=== PATIENT | female | born 1960 | race Caucasian/White ===

== ENCOUNTER 2020-11-05 11:37 | Outpatient (REF) | payer MEDICAID, SELFPAY | END 2020-11-05 11:38 | disposition home or self-care (01) | LOC: HO.HOSX 11:37 | PROVIDERS: PCP Internal Medicine; Visit Provider Orthopaedic Surgery | DX: Z98.890 Other specified postprocedural states (principal) | CPT/HCPCS: 99202 ==

== ENCOUNTER 2020-11-06 07:43 | Outpatient (REF) | payer MEDICAID, SELFPAY | END 2020-11-06 07:44 | disposition home or self-care (01) | LOC: HO.HOSX 07:43 | PROVIDERS: Visit Provider Orthopaedic Surgery | DX: Z13.89 Encounter for screening for other disorder (principal) ==

== ENCOUNTER 2020-11-15 15:36 | Outpatient (REF) | payer MEDICAID, SELFPAY ==
--- NOTE | 2020-11-15 15:39 | MR_ITS ---
EXAMINATION: MR SHOULDER WITHOUT CONTRAST, RIGHT CLINICAL INFORMATION: Right shoulder pain, arm numbness. Prior surgery in 1999 and 2003. COMPARISON: Most recent right shoulder MR arthrography dated 02/21/2016. TECHNIQUE: MRI of the shoulder without contrast was performed on a high-field scanner. FINDINGS: ROTATOR CUFF: Attenuation of the distal supraspinatus, infraspinatus, and subscapularis tendons without a measurable tendon defect. No muscle atrophy or fatty infiltration. BICEPS: Interval proximal long head biceps tenodesis. CORACOACROMIAL ARCH: The undersurface of the acromion is minimally curved with small anterolateral subacromial spurs. The acromioclavicular joint is normal. LABRUM/CAPSULE: No displaced undersurface tear. Blunting of the posterosuperior and posterior labrum, likely representing degenerative tearing. Findings are increased when compared to the prior examination. GLENOHUMERAL JOINT/MARROW: Full-thickness articular cartilage loss at the anterior and inferior glenoid with underlying subchondral cystic change. Adjacent humeral head articular cartilage thinning with areas of full-thickness loss. Prominent marginal osteophytes. Findings have significantly increased when compared to the prior examination. No acute osseous injury. MR/MR shoulder RT wo con IMPRESSION: 1. Attenuation of the distal supraspinous, infraspinatus, and subscapularis tendons without a measurable tendon defect. 2. Interval proximal long head biceps tenodesis. 3. Small anterolateral subacromial spurs. 4. Degenerative tearing of the posterosuperior and posterior labrum, new when compared to the prior examination. No displaced undersurface tear. 5. [id number] glenohumeral osteoarthritis, significantly increased when compared to the prior examination.
== END 2020-11-15 15:37 | disposition home or self-care (01) ==
LOC: HO.MRI 15:36
PROVIDERS: Visit Provider Orthopaedic Surgery
DX: R53.1 Weakness (principal); Z98.890 Other specified postprocedural states
CPT/HCPCS: 73221

== ENCOUNTER 2021-01-24 09:00 | Outpatient (RCR) | payer MEDICAID, SELFPAY ==
--- NOTE | 2020-11-19 11:09 | MHC.PT.EP ---
[facility] [place] Office [place] Office [place] Office [address] [phone] F: [phone] F: [phone] F: [phone] F: [phone] Physical Therapy Plan of Care Date of Evaluation: 11/19/20 Date of Surgery: 03/2016 Diagnosis: History of Repair of Right Rotator Cuff Assessment: Pt is a 60 y.o.f. RHD with chief complaint of (R) shoulder pain that has been worsening over last year. Pt PMH is significant for two prior rotator cuff repairs of (R) shoulder with last in 2015. Pt today presents with reduced and pain A/AAROM, shoulder/periscapualr strength, postural abnormalities, compensatory movements with AROM, general joint hypomobility with crepitis, and (+) impingement special testing. Pt sxs are consistent with arthritic changes to (R) shoulder further compounded by weakness causing pain with overhead and lifting movement. 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 Frequency and Duration: The patient will be seen 2x/week for 6 weeks Short Term Goals: 3 Weeks: 1) Pt will be independent in HEP to maintain gains between sessions 2) Pt pain will improve ROM by 50% during movement to aid in pre planning advisor roles. Prison Goals: 6 Weeks: 1) Pt shoulder/periscapular strength will be >4-/5 to aid in ADLs 2) Pt abduction will be >130 degrees to aid in dressing 3) Pt SPADI will be <50/130 to demonstrate significant improvement in daily function. Treatment Plan: Modalities to reduce pain, spasms and effusion. Manual therapy to restore motion and function. Therapeutic exercise to improve strength and flexibility. Neuromuscular re-education for posture and balance. Therapeutic activities to return to functional activities of daily living. Electronically signed by: Nighat Martínez PT Please sign and return to therapist. Thank you for your referral.
--- NOTE | 2021-01-28 07:50 | MHC.PT.DC ---
[facility] [place] [facility] [place] Office [place] Office [address] [facility] [phone] F: [phone] F: [phone] F: [phone] F: [phone] Physical Therapy Discharge Report Diagnosis: History of Repair of Right Rotator Cuff Date of Surgery: 03/2016 Date of Evaluation: 11/19/20 Date of Discharge: 01/25/21 Treatments to Date: 11 Cancellations to Date: 0 No Shows to Date: 0 Discharge Status: Independent with HEP Discharge Summary: Pt with minimal progress and continues to have limited shoulder AROM, decreased GH accessory mobility, and shrug with overhead. Pt to continue with HEP. Electronically signed by: Nighat Martínez PT Please sign and return to therapist. Thank you for your referral.
== END 2021-01-28 07:51 | disposition home or self-care (01) ==
LOC: HO.PTCHIC 09:00
PROVIDERS: PCP Internal Medicine; Visit Provider Orthopaedic Surgery
DX: Z47.89 Encounter for other orthopedic aftercare (principal)
CPT/HCPCS: 97110; 97112; 97140; 97161

== ENCOUNTER 2021-07-17 15:31 | Outpatient (REF) | payer BC, MEDICAID, SELFPAY ==
--- NOTE | ~2021-07-17 | MM_ITS ---
EXAMINATION: MM SCREENING DIGITAL BREAST TOMOSYNTHESIS, BILATERAL CLINICAL INFORMATION: Screening. Asymptomatic. The lifetime risk of breast cancer based on the Tyrer-Cuzick Model is 6%. COMPARISON: Mammography: 03/09/2019, 03/08/2018, 02/06/2017 TECHNIQUE: Digital breast tomosynthesis is performed in both the craniocaudal and mediolateral oblique views along with computer-aided detection (CAD). Synthesized 2D images are generated from the tomosynthesis. FINDINGS: There are scattered areas of fibroglandular density (ACR BI-RADS breast composition Category b). There are no significant masses, abnormal calcifications, or other abnormalities. Parenchymal pattern is similar to prior studies. No developing density. There is chronic mild bilateral nipple retraction. MM/MM tomosynthesis screening BI IMPRESSION: No significant changes from prior exams. ASSESSMENT: BI-RADS 2: Benign RECOMMENDATION: Routine annual mammography screening. This patient's information was entered into a reminder system with a target due date for their next mammogram.
== END 2021-07-17 15:32 | disposition home or self-care (01) ==
LOC: HO.MAMMO 15:31
PROVIDERS: PCP Internal Medicine; Visit Provider Internal Medicine
DX: Z12.31 Encounter for screening mammogram for malignant neoplasm of breast (principal)
CPT/HCPCS: 77063; 77067

== ENCOUNTER 2021-10-29 15:40 | Outpatient (REF) | payer BC, MEDICAID, SELFPAY ==
--- NOTE | ~2021-10-29 | XR_ITS ---
EXAMINATION: XR KNEE, LEFT CLINICAL INFORMATION: Left knee pain and swelling COMPARISON: None TECHNIQUE: Four views of the left knee. FINDINGS: There is moderate suprapatellar joint effusion. No visible acute fracture, dislocation or loose body seen. The tricompartment joint space is maintained normal. XR/XR knee LT 4V IMPRESSION: Mild to moderate suprapatellar joint effusion. No visible acute fracture or dislocation seen.
== END 2021-10-29 15:41 | disposition home or self-care (01) ==
LOC: HO.HMGCX 15:40
PROVIDERS: PCP Internal Medicine; Visit Provider Internal Medicine
DX: M25.562 Pain in left knee (principal); R60.0 Localized edema
CPT/HCPCS: 73564

== ENCOUNTER 2022-01-27 18:28 | Outpatient (REF) | payer BC, MEDICAID, SELFPAY ==
--- NOTE | ~2022-01-27 | MR_ITS ---
MRI OF THE BRAIN WITHOUT IV CONTRAST INDICATION: Progressive cognitive dysfunction. COMPARISON: None available. TECHNIQUE: Multiplanar multisequence MR imaging of the brain was obtained without IV contrast. FINDINGS: There is no hydrocephalus, extra-axial surface collection, or herniation. There is mild chronic microangiopathy. The major flow voids at the skull base are preserved. There is no acute infarct on diffusion-weighted imaging. There is no intracranial hemorrhage on the gradient recalled echo acquisition. The midline structures are normal. There is 3 mm cerebellar tonsillar ectopia without true Chiari malformation. The cerebellum and brainstem are normal. The craniocervical junction is normal. Osseous marrow signal intensity is homogenous. The visualized soft tissues are unremarkable. There is a small fluid level within the right maxillary sinus which exhibits mild mucosal thickening. MR/MR head/brain wo con IMPRESSION: - No acute intracranial findings. - Mild chronic microangiopathy. - There is a small fluid level within the right maxillary sinus which exhibits mild mucosal thickening.
== END 2022-01-27 18:29 | disposition home or self-care (01) ==
LOC: HO.MRI 18:28
PROVIDERS: Visit Provider Internal Medicine
DX: R41.81 Age-related cognitive decline (principal); Q04.8 Other specified congenital malformations of brain
CPT/HCPCS: 70551

== ENCOUNTER 2022-06-11 14:00 | Outpatient (REF) | payer BC, MEDICAID, SELFPAY ==
--- NOTE | ~2022-06-11 | MM_ITS ---
EXAMINATION: BONE DENSITOMETRY CLINICAL INDICATION: Menopause. COMPARISON: Baseline BD dated 04/22/2019. TECHNIQUE: Using a [employer] DXA System (software version: 13.1) manufactured by [employer], dual-energy x-ray absorptiometry was performed of the lumbar spine and left hip. The images are of good technical quality. Summary results are attached. FINDINGS: AP SPINE L1-L2 (excluding L3 and L4): The data of L1-L4 has been changed to exclude the L3 and L4 vertebral bodies, because degenerative sclerosis and metallic artifact from lumbar fusion at these levels may cause overestimation of lumbar spine density. Current: BMD 1.002 g/cm2, Z-score 0.1, T-score -1.4, osteopenia, 5.8% increase from baseline (<5% change is not significant). Baseline: BMD 0.947 g/cm2. LEFT FEMUR, NECK: Current: BMD 0.724 g/cm2, Z-score -0.9, T-score -2.3, osteopenia. Baseline: BMD 0.770 g/cm2. LEFT FEMUR, TOTAL: Current: BMD 0.788 g/cm2, Z-score -0.6, T-score -1.7, osteopenia, 6.4% decrease from baseline (<5% change is not significant). Baseline: BMD 0.842 g/cm2. IDENTIFIED RISK FACTORS: Menopause. HISTORY OF FRACTURE: None listed. MEDICATIONS: Calcium. MM/XR DEXA axial skeleton IMPRESSION: 1. DIAGNOSIS: Osteopenia based on the lowest T-score value of -2.3 in the femoral neck applying World Health Organization criteria. 2. 10-YEAR FRACTURE RISK PREDICTION, FRAX: Major osteoporotic fracture (clinical spine, forearm, hip or shoulder) 11.1%. Hip fracture 1.8%. 3. Treatment Recommendations: NOF guidelines recommend consideration for treatment in postmenopausal women and men age 50 and older presenting with the following: -A hip or vertebral (clinical or morphometric) fracture. -T-score less than or equal to -2.5 at the femoral neck or spine after appropriate evaluation to exclude secondary causes. -Low bone mass at the hip or spine and a 10-year fracture probability by FRAX of greater than or equal to 3% for hip fracture or greater than or equal to 20% for major osteoporotic fracture based on the [place] adapted WHO algorithm. 4. Other Recommendations: All treatment decisions require clinical judgment and consideration of individual patient factors, including patient preferences, comorbidities, previous drug use, risk factors not captured in the FRAX model (e.g. frailty, falls, vitamin D deficiency, increased bone turnover, interval significant decline in bone density) and possible under or overestimation of fracture risk by FRAX. Additional medical evaluation for secondary cause of low bone mineral density may be appropriate. FUTURE SCAN RECOMMENDATION: People with diagnosed cases of osteoporosis or at high risk for fracture should have regular bone mineral density tests. For patients eligible for Medicare, routine testing is allowed once every 2 years. The testing frequency can be increased to one year for patients who have rapidly progressing disease, those who are receiving or discontinuing medical therapy to restore bone mass, or have additional risk factors.
== END 2022-06-11 14:01 | disposition home or self-care (01) ==
LOC: HO.MAMMO 14:00
PROVIDERS: PCP Internal Medicine; Visit Provider Nurse Practitioner Women's Health
DX: Z13.820 Encounter for screening for osteoporosis (principal); Z78.0 Asymptomatic menopausal state
CPT/HCPCS: 77080

== ENCOUNTER 2022-07-21 15:48 | Outpatient (REF) | payer BC, MEDICAID, SELFPAY ==
--- NOTE | ~2022-07-21 | MM_ITS ---
EXAMINATION: MM SCREENING DIGITAL BREAST TOMOSYNTHESIS, BILATERAL CLINICAL INFORMATION: Screening. Asymptomatic. The lifetime risk of breast cancer based on the Tyrer-Cuzick Model is 7%. COMPARISON: Mammography: 07/17/2021, 03/09/2019, 03/08/2018 TECHNIQUE: Digital breast tomosynthesis is performed in both the craniocaudal and mediolateral oblique views along with computer-aided detection (CAD). Synthesized 2D images are generated from the tomosynthesis. Additional left MLO view is provided. FINDINGS: There are scattered areas of fibroglandular density (ACR BI-RADS breast composition Category b). There are no significant masses, abnormal calcifications, or other abnormalities. Parenchymal pattern is similar to prior studies. There is a stable oval nodule posterior upper outer right breast similar to prior studies, possibly intraparenchymal node. The axilla and skin contours are unremarkable. No significant changes. MM/MM tomosynthesis screening BI IMPRESSION: No mammographic evidence of malignancy. ASSESSMENT: BI-RADS 2: Benign RECOMMENDATION: Routine annual mammography screening. This patient's information was entered into a reminder system with a target due date for their next mammogram.
== END 2022-07-21 15:49 | disposition home or self-care (01) ==
LOC: HO.MAMMO 15:48
PROVIDERS: PCP Internal Medicine; Visit Provider Internal Medicine
DX: Z12.31 Encounter for screening mammogram for malignant neoplasm of breast (principal)
CPT/HCPCS: 77063; 77067

== ENCOUNTER 2022-09-10 12:50 | Outpatient (REF) | payer BC, SELFPAY ==
--- NOTE | ~2022-09-10 | XR_ITS ---
EXAMINATION: XR CHEST CLINICAL INFORMATION: Left lower chest pain. Rule out pneumonia COMPARISON: None TECHNIQUE: 2 views of the chest were obtained. FINDINGS: No significant abnormality is noted involving the heart, lungs, mediastinum, bony thorax or soft tissues. XR/XR chest 2V IMPRESSION: Unremarkable chest examination.
== END 2022-09-10 12:51 | disposition home or self-care (01) ==
LOC: HO.HMGCX 12:50
PROVIDERS: PCP Internal Medicine; Visit Provider Internal Medicine
DX: R07.9 Chest pain, unspecified (principal)
CPT/HCPCS: 71046

== ENCOUNTER → 2022-09-18 15:51 | Outpatient (BNVA) | payer BC, SELFPAY | PROVIDERS: PCP Internal Medicine; Visit Provider Orthopaedic Surgery | DX: M19.011 Primary osteoarthritis, right shoulder (principal) | CPT/HCPCS: 20610; J1100 ==

== ENCOUNTER 2022-11-13 10:17 | Outpatient (REF) | payer BC, SELFPAY ==
--- NOTE | ~2022-11-13 | XR_ITS ---
EXAMINATION: XR SHOULDER, RIGHT CLINICAL INFORMATION: Right shoulder pain. COMPARISON: 01/31/2016 and MRI of 11/15/2020. TECHNIQUE: Three views of the right shoulder. FINDINGS: Patient status post previous right shoulder surgery with 2 tacks seen within the femoral head. There is significant spurring about the glenohumeral joint with narrowing of the joint space. No acute fracture or dislocation is evident. The acromioclavicular joint appears unremarkable. No widening of the coracoclavicular space is seen. XR/XR shoulder RT min 2V IMPRESSION: Severe degenerative change of the right glenohumeral joint.
== END 2022-11-13 10:18 | disposition home or self-care (01) ==
LOC: HO.HOSX 10:17
PROVIDERS: Visit Provider Orthopaedic Surgery
DX: M19.011 Primary osteoarthritis, right shoulder (principal); Z98.890 Other specified postprocedural states
CPT/HCPCS: 73030

== ENCOUNTER 2022-12-04 13:14 | Outpatient (REF) | payer BC, SELFPAY | END 2022-12-04 13:15 | disposition home or self-care (01) | LOC: HO.HOSX 13:14 | PROVIDERS: PCP Internal Medicine; Visit Provider Orthopaedic Surgery | DX: Z13.89 Encounter for screening for other disorder (principal) ==

== ENCOUNTER 2023-01-08 19:09 | Outpatient (REF) | payer BC, SELFPAY ==
--- NOTE | ~2023-01-08 | MR_ITS ---
EXAMINATION: MR SHOULDER WITHOUT CONTRAST, RIGHT CLINICAL INFORMATION: Primary osteoarthritis. Patient reports rotator cuff surgery 5 years prior. COMPARISON: X-ray the right shoulder October 2022 TECHNIQUE: MRI of the shoulder without contrast was performed on a high-field scanner. FINDINGS: ROTATOR CUFF: There is mild heterogeneity of the supraspinatus and infraspinatus tendons compatible with tendinosis and perhaps small areas of partial tearing but without any measurable defect. Muscle is normal without atrophy of fatty infiltration. Teres minor normal. Subscapularis: Minimal heterogeneity of the upper most portion of the musculotendinous junction similar to prior compatible with tendinosis and/or minimal partial tearing but no measurable defect or tendon retraction. Muscle normal. BICEPS: There is metallic artifact partially obscuring the lesser tuberosity and surrounding soft tissues. Suspect biceps tenodesis. Tendon distal to the bicipital groove visualized and unchanged. CORACOACROMIAL ARCH: The undersurface of the acromion is curved with no subacromial spur. The acromioclavicular joint is normal. BURSA: Normal. LABRUM/CAPSULE: Persistent heterogeneity and blunting of the superior and posterior labrum likely reflecting degenerative change and/or degenerative tearing. GLENOHUMERAL JOINT/MARROW: There is a persistent large osteophyte along the inferior aspect of the humeral head unchanged. There is diffuse nonuniform primarily high-grade cartilage loss noted throughout the joint with associated subchondral cystic change. There is some reactive edema most prominent on the glenoid side of the joint. There is a joint effusion and synovitis. Possible 5 mm loose body in the axillary recess not clearly seen on the prior exam. MR/MR shoulder RT wo con IMPRESSION: 1. Severe osteoarthritis of the glenohumeral joint with joint effusion and synovitis. Findings similar to prior. Possible loose body in the axillary recess. 2. Mild abnormality of the supraspinatus and infraspinatus tendons compatible with tendinosis and perhaps small areas of partial tearing but no measurable defect or tendon retraction. No change. 3. Minimal abnormality of the upper most portion of the subscapularis compatible with tendinosis and perhaps minimal partial tearing but no measurable defect. No change. 4. Biceps tenodesis. 5. Degenerative change and/or degenerative tearing of the superior and posterior labrum. No change.
== END 2023-01-08 19:10 | disposition home or self-care (01) ==
LOC: HO.MRI 19:09
PROVIDERS: PCP Internal Medicine; Visit Provider Orthopaedic Surgery
DX: M19.011 Primary osteoarthritis, right shoulder (principal); Z98.890 Other specified postprocedural states
CPT/HCPCS: 73221

== ENCOUNTER → 2023-01-19 14:05 | Outpatient (BNVA) | payer BC, SELFPAY | PROVIDERS: PCP Internal Medicine; Visit Provider Orthopaedic Surgery | DX: Z13.89 Encounter for screening for other disorder (principal) ==

== ENCOUNTER 2023-03-17 07:30 | Outpatient (REF) | payer BC, SELFPAY ==
--- NOTE | ~2023-03-17 | CT_ITS ---
EXAMINATION: CT SHOULDER WITHOUT CONTRAST, RIGHT CLINICAL INFORMATION: Primary osteoarthritis. COMPARISON: None available. TECHNIQUE: Axial imaging. Sagittal and coronal reconstructions. This CT examination was performed using dose optimization techniques as appropriate, variously including the following: *Automated exposure control *Adjustment of mA and/or kV according to patient size (this includes techniques or standardized protocols for targeted exams where dose is matched to indication/reason for exam; i.e. extremities or head) *Use of iterative reconstruction technique DLP: 211 mGy-cm FINDINGS: Severe glenohumeral joint arthritis. This is characterized by marked joint space loss, large osteophytes, subchondral sclerosis and cysts. There are metallic bone anchors in the anterior aspect of the proximal humerus. No large glenohumeral joint effusion is seen. Mild acromioclavicular arthritis. Intact right clavicle. Glenoid version: Estimated 5 degrees retroversion. Estimated depth of the glenoid vault: 1.9 cm. Subcentimeter right axillary and mediastinal lymph nodes. No suspicious lung findings. CT/CT shoulder RT wo IV con IMPRESSION: Severe glenohumeral joint arthritis. Mild acromioclavicular arthritis.
== END 2023-03-17 07:31 | disposition home or self-care (01) ==
LOC: HO.CT 07:30
PROVIDERS: Visit Provider Orthopaedic Surgery
DX: M19.011 Primary osteoarthritis, right shoulder (principal)
CPT/HCPCS: 73200

== ENCOUNTER → 2023-03-26 14:25 | Outpatient (BNVA) | payer BC, SELFPAY | PROVIDERS: PCP Internal Medicine; Visit Provider Physician Assistant ==

== ENCOUNTER 2023-03-31 09:59 | Inpatient (IN) | payer BC, SELFPAY ==
[2023-03-23 12:11] VITALS: BP 127/86; PULSE 57; RESP 16; O2SAT 97; BMI 27.0
--- NOTE | 2023-03-23 12:36 | P.CONAN_ITS ---
Documented by User: Belem Espinal NP 03/23/23 12:45 HPI - Anesthesia Eval Consult details Narrative: 62yo F for Right Shoulder Total Arthroplasty Medically optimized per PCP Chronic opioids PMFSH Active Problems Active Problems: All Active Problems (Updated 03/23/23 @ 12:08 by Maia Sousa, IZA) Osteoarthritis of right shoulder (Acute) History of repair of right rotator cuff (Acute ~03/2016) Past Medical History Medical History Elevated cholesterol History of COVID-19 History of hepatitis C HTN (hypertension) Low back pain Memory changes Right shoulder pain Family History Family History (Updated 07/18/20 @ 10:54 by Kina Shah Alvaro) Father No problems noted. Mother No problems noted. 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) Do you presently have visiting nurse or other home services: No Alcohol intake: never Patient Tobacco Use Status: Former Tobacco user Quit Date: Tobacco use type: Cigarette Current occupational status: employed Current occupation: right handed Narrative Narrative: No recent illness No CP/SOB with >4 mets Meds Allergies Allergy/AdvReac Type Severity Reaction Status Date / Time No Known Allergies Allergy Verified 03/31/23 10:14 [No Known Allergies*] Home Medications Medication Instructions Recorded Confirmed Last Taken Type tramadol 50 mg tablet 50 mg PO TID PRN Pain 11/05/20 03/23/23 Unknown History oxycodone 10 mg tablet 10 mg PO QID PRN Pain 09/18/22 03/23/23 Unknown History metoprolol succinate 25 mg 25 mg PO DAILY 01/19/23 03/23/23 03/30/23 History tablet,extended release 24 hr atorvastatin 10 mg tablet 10 mg PO DAILY 03/23/23 03/23/23 03/30/23 History donepezil 10 mg tablet 10 mg PO DAILY 03/23/23 03/23/23 03/30/23 History Exam Exam Date and Time: March 23, 2023 1236 Height,Weight and Vital Signs: Height 5 ft 1 in Weight 64.864 kg Last Vital Signs Pulse 57 03/23/23 12:11 Resp 16 03/23/23 12:11 BP 127/86 03/23/23 12:11 Pulse Ox 97 03/23/23 12:11 O2 Del Method Room Air 03/23/23 12:11 Pertinent Lab Results Pertinent Lab Results: CBC and BMP 02/2023 from outside facility WNL Narrative Narrative: EKG 02/2023 NSR @ 60 Airway Mallampati Class: III TM Dist: >3cm Neck ROM: Full Loose/Missing/Broken Teeth: No (Left lower implant) Heart: RRR Lungs: CTAB (bases dim) Assessment and Plan Assessment Anesthesia Assessment: Anesthesia Plan Discussed and PAT Visit Final Anesthetic Review Family History of Problems with Anesthesia: No History of Problems with Anesthesia: No Documented by User: Radha Elizabeth MD 03/31/23 11:33 HPI - Anesthesia Eval Consult details Narrative: 62yo F for Right Shoulder Total Arthroplasty Medically optimized per PCP Chronic opioids ladt took oxycodone one week ago. takes tramadol one to two tabs per day. took metoprolol last back surgery 5 years ago, overall lumbarsurgeryx2 PMFSH Active Problems Active Problems: All Active Problems (Updated 03/23/23 @ 12:08 by Maia Sousa, IZA) Osteoarthritis of right shoulder (Acute) History of repair of right rotator cuff (Acute ~03/2016) back surgeries x2 Past Medical History Medical History Elevated cholesterol History of COVID-19 History of hepatitis C HTN (hypertension) Low back pain Memory changes Right shoulder pain Family History Family History (Updated 07/18/20 @ 10:54 by Kina Shah Alvaro) Father No problems noted. Mother No problems noted. 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 (son with special needs) Do you presently have visiting nurse or other home services: No Alcohol intake: never Patient Tobacco Use Status: Former Tobacco user Quit Date: Tobacco use type: Cigarette Current occupational status: employed Current occupation: right handed Meds Allergies Allergy/AdvReac Type Severity Reaction Status Date / Time No Known Allergies Allergy Verified 03/31/23 10:14 [No Known Allergies*] Home Medications Medication Instructions Recorded Confirmed Last Taken Type tramadol 50 mg tablet 50 mg PO TID PRN Pain 11/05/20 03/23/23 Unknown History oxycodone 10 mg tablet 10 mg PO QID PRN Pain 09/18/22 03/23/23 Unknown History metoprolol succinate 25 mg 25 mg PO DAILY 01/19/23 03/23/23 03/30/23 History tablet,extended release 24 hr atorvastatin 10 mg tablet 10 mg PO DAILY 03/23/23 03/23/23 03/30/23 History donepezil 10 mg tablet 10 mg PO DAILY 03/23/23 03/23/23 03/30/23 History Exam Airway Mallampati Class: II Assessment and Plan Final Anesthetic Review ASA Class: II Final Preanesthetic Review: No Changes in Pt Med Stat, Meds/Allgs Chart Reviewed, Consent Obtained/Reviewed and Anes Risks/Benef Reviewed Patient Risk: Intermediate Procedure Risk: Intermediate Anesthetic Plan Anesthetic Plan: GA and Regional Block Disposition: Standard PACU
[2023-03-23 13:01] LABS: MANUAL DIFF FLAG NO
[2023-03-23 13:07] LABS: Basophils Absolute Auto 0.1 X10*3/uL (0.0-0.2); Basophils Percent Auto 0.8 % (0-2); Eosinophils Absolute Auto 0.2 X10*3/uL (0.0-0.4); Eosinophils Percent Auto 2.5 % (0-4); Hematocrit 40.8 % (37.0-47.0); Hemoglobin 13.5 g/dl (12.0-16.0); Imm Gran Abs Auto 0.01 X10*3/uL (0.00-0.03); Imm Gran Pct Auto 0.1 % (0.0-0.4); Lymphocytes Absolute Auto 2.8 X10*3/uL (1.2-4.9); Lymphocytes Percent Auto 39.5 % (20-40); Mean Corpuscular HGB Conc 33.1 g/dl (31.0-35.0); Mean Corpuscular Hemoglobin 31.8 pg (27.0-33.0); Mean Corpuscular Volume 96.2 fL (80.0-98.0); Mean Platelet Volume 10.6 fL (9.4-12.3); Monocytes Absolute Auto 0.6 X10*3/uL (0.1-1.2); Neutrophils Absolute Auto 3.5 x10*3/uL (2.0-8.3); Neutrophils Percent Auto 49.1 % (45-73); Platelet Count 248 X10*3/uL (160-400); Red Blood Count 4.24 X10*6/uL (4.20-5.50); Red Cell Distribution Width 12.7 % (11.0-16.0); White Blood Count 7.1 X10*3/uL (4.8-10.8)
[2023-03-23 13:28] LABS: Anion Gap 12 (12-20); Blood Urea Nitrogen 28 mg/dL (9-16); Calcium 9.8 mg/dL (8.4-10.2); Carbon Dioxide 28 mmol/L (22-29); Chloride 104 mmol/L (96-108); Creatinine Clr Calc Pharmacy 57.9; Estimated Glomerular Filt Rate > 60; Glucose Random 79 mg/dL (60-115); Potassium 4.1 mmol/L (3.3-5.1); Sodium 140 mmol/L (135-145)
[2023-03-23 15:07] LABS: MRSA Nasal PCR NEGATIVE (Negative); SA Nasal PCR POSITIVE (Negative)
[2023-03-31] VITALS (7 sets, daily range): BP systolic 99–134; BP diastolic 56–86; PULSE 57–77; RESP 15–20; TEMP 36.1–36.6; O2SAT 92–98; BMI 27.7
--- NOTE | ~2023-03-31 | XR_ITS ---
EXAMINATION: XR SHOULDER, RIGHT CLINICAL INFORMATION: Right shoulder replacement COMPARISON: Previous x-ray October 2022 CT February 2023 and MR December 2022 TECHNIQUE: AP portable view of the right shoulder. FINDINGS: There is a new right shoulder replacement in satisfactory position. No fracture or dislocation postoperative changes to the soft tissues. XR/XR shoulder RT 1V IMPRESSION: Satisfactory appearance of right shoulder replacement.
--- OUTSIDE RECORDS SUMMARY | 2023-03-31 10:04 | XMS_ITS ---
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 Role Phone Gabino Moran Jr Unavailable [phone] PROBLEMS Type Condition ICD9-CM Code WTE36-IS Code Onset Dates Condition Status SNOMED Code Problem Colon cancer screening V76.51 Active 502293704 Problem Hepatitis C 070.70 Active [id number] ALLERGIES No Known Allergies ENCOUNTERS Encounter Location Date Diagnosis [facility] [address] [place] [phone] Nov, [facility] [address] [place] [phone] Oct, [facility] [address] [place], [place] [phone] Jul, [facility] [address] [place] [phone] Apr, Hepatitis C 070.70 and Colon cancer screening V76.51 [facility] [address] [place] [phone] May, [facility] [address] [place], [place] [phone] May, IMMUNIZATIONS No Known Immunizations SOCIAL HISTORY Never Assessed REASON FOR REFERRAL FUNCTIONAL STATUS PLAN OF CARE Activity Details VITAL SIGNS Weight 137 lbs 2012-04-29 Height 61 in 2012-04-29 BMI 25.88 kg/m2 2012-04-29 Heart Rate 76 /min 2012-04-29 Blood pressure systolic 130 mm Hg Blood pressure diastolic 82 mm Hg 2012-04 MEDICATIONS Medication Instructions Dosage Frequency Start Date End Date Duration Status fentaNYL Active Flaxseed Oil Act perla Multi Vitamin/Minera ls Active traMADol HCl Act perla MoviPrep 100 GM as directed before colonoscopy Apr, 1 dose Active Vitamin D Active oxyCODONE HCl Ac tive Calcium Active PROCEDURES No Known procedures RESULTS No Results REASON FOR VISIT Patient presents today for a colon recall, colon recall, Pt no show, Patient presents today for discuss colonoscopy, New insurance?, colorectal cancer screening, hepatitis c Insurance Providers Health Insurance Type Health Plan Insurance Address Health Plan Insurance Phone Health Plan Insurance Name Health Plan Coverage Dates Member ID Patient Relationship to Subscriber Patient Address Patient Phone Patient Name Patient Date of Subscriber ID Subscriber Name Subscriber Date of Group No ANTHEM BC/BS OF [place] [address] CLAIMS UNIT [facility] [phone] ANTHEM BC/BS OF CT self NATHAN TALBOT [id number] [employer] [place] [address] [facility] [id number] [employer] [place] self NATHAN TALBOT [id number]
--- OUTSIDE RECORDS SUMMARY | 2023-03-31 10:04 | XMS_ITS | Continuity of Care Document ---
Author Name Unknown Organization [facility] Address [address] [place] [address]- Care Team Providers Care Golf Starter And Ranger Name Role Phone Bill SANTILLAN, Domingo Negron Primary Care Physician [phone] Encounter [facility] Date(s): 02/21/23 - 02/21/[address] [address]- Encounter Diagnosis Opiate overdose(Final) - 02/21/23 Discharge Disposition: A-D/C Home Attending Physician: Shorty Ni MD Admitting Physician: Shorty Ni MD Referring Physician: Not on Staff, Referring MD Vital Signs Most recent to oldest [Reference Range]: 1 2 Oxygen Saturation [94-100 %] 100 % (02/21/23 12:06 PM) 97 % (02/21/23 8:41 AM) Pulse Rate [55-90 bpm] 65 bpm (02/21/23 12:06 PM) 73 bpm (02/21/23 8:41 AM) Blood Pressure [90-138/55-84 mm Hg] 114/ 64mm Hg (02/21/23 12:06 PM) 133/79mm Hg (02/21/23 8:41 AM) Respiratory Rate [16-30 br/min] 18 br/mi n (02/21/23 12:06 PM) 20 br/min (02/21/23 8:41 AM) Temperature [96.8-100.4 DegF] 98.8 DegF (02/21/23 8:41 AM) Mode of Delivery (Oxygen) Room air (02/21/23 12:06 PM) Room air (02/21/23 8:41 AM) Blood pressure sites Arm, left (02/21/23 12:06 PM) Arm, left (02/21/23 8:41 AM) Temperature Route Oral (02/21/23 8:41 AM) EKG study * Event Display: ECG 12-Lead Authored Date: Please click on pdf link to open report * Event Display: ECG 12-Lead Authored Date: Ventricular Rate: 69 BPM Atrial Rate: 69 BPM P-R Interval: 140 ms QRS Duration: 80 ms Q-T Interval: 388 ms QTC Calculation(Bazett): 415 ms P [place]: -11 degrees R [place]: 13 degrees T [place]: -3 degrees Normal sinus rhythm Normal ECG No previous ECGs available Confirmed by KEYSHA VILLAFUERTE MD ([id number]) on 02/21/2023 9:09:34 AM [place]: KEYSHA VILLAFUERTE MD Patient Care team information Care Team Personnel Name: Domingo Khan MD Position: Reference Physician Member Role: PCP Address: Address: [address] [place] [address]- Name: Jade Vergara Position: [facility] ED RN W/OE and Tasks Member Role: Patient Care Provider Name: Indira Rodríguez Position: [facility] ED RN W/OE and Tasks Member Role: Patient Care Provider Name: Zaid Nelson MD Position: [facility] Resident Member Role: ED Resident Address: Address: [address] [place] [address]- [place] Name: Shorty Ni MD Position: [facility] ED Medicine MD Member Role: Admitting Physician Address: Address: [address] [place] [address]- Name: Jenny Sultana Position: [facility] ED TA [facility] Member Role: Nail Welter Care Team Related Persons Name: TALBOT TIFFANY Address: home [address] [place] [address]
--- NOTE | 2023-03-31 10:10 | PHA.MEDREC ---
Pharmacy Consult ? Medication Reconciliation Pharmacy has completed the medication reconciliation. Reviewed med rec done by nursing
[2023-03-31] MEDS: Lactated Ringers 1,000 ML 100 ML IVCONT ×2 (10:59→15:44)
--- NOTE | 2023-03-31 14:19 | MHC.SHP ---
Pre-Procedural Eval Section A Date of Service: 03/31/23 The patient is an INPATIENT: No Changes since office visit: No Cold of Flu in the past 2 weeks, No New Medical Problems, No Changes in Medication and No Patient answered all questions The History & Physical has been completed within 30 days and I have reviewed it.: Yes Section B Chief Complaint: RT TSA Allergies: Allergies Allergy/AdvReac Type Severity Reaction Status Date / Time No Known Allergies Allergy Verified 03/31/23 10:14 [No Known Allergies*] Plan I have reviewed the history and physical and performed a pertinent physical examination on my patient. No changes have occurred unless specified. Time Spent With Patient Time: Total time managing care of this patient today ____ minutes.
--- NOTE | 2023-03-31 14:20 | P.BOP_ITS ---
Brief Operative Note Date of Service: 03/31/23 Pre-op diagnosis: Right shoulder OA Post-op diagnosis: same Procedure: Right TSA Implants: Tournier Size 1 Nucleus 44x18 Simpliciti head Small 40 Cortiloc glenoid, cemented Surgeon: Tan Benavidez MD Anesthesia: GETA and regional Was an Exterior Door Installer used for this Procedure?: Yes Exterior Door Installer: Milana Dee Estimated blood loss (mL): 200 IV fluids (mL): 1,000 Pathology: other Condition: stable Disposition: PACU
--- NOTE | 2023-03-31 16:03 | PM.IMCN ---
History of Present Illness Data of Consult Service Date: 03/31/23 Primary Care Provider: Unknown Physician HPI Reason for consult: hld 62F PMH htn, hld, alzheimers dementia(mild), presneted for elective right total shoulder arthoplasty for osteoarthritis. medical consult for comanagement of comorbidities. postoperatively, patient has no active complaints. Review of Systems Review of Systems: Yes all other systems are reviewed and are negative [facility] Medical History Elevated cholesterol History of COVID-19 History of hepatitis C HTN (hypertension) Low back pain Memory changes Right shoulder pain Family History Father No problems noted. Mother No problems noted. Surgical History History of back surgery History of carpal tunnel release History of repair of right rotator cuff (~03/2016) Hx of colonoscopy Social History Are you a primary pediatric critical care nurse to a significant other at home: Yes (son with special needs) Do you presently have visiting nurse or other home services: No Alcohol intake: never Patient Tobacco Use Status: Former Tobacco user Quit Date: Tobacco use type: Cigarette Current occupational status: employed Current occupation: right handed Meds Allergies Allergy/AdvReac Type Severity Reaction Status Date / Time No Known Allergies Allergy Verified 03/31/23 10:14 [No Known Allergies*] Active Medications: Current Medications Acetaminophen (Acetaminophen 325 Mg Tablet) 650 mg PO Q6H PRN PRN Reason: Pain, Mild (Pain Scale 1-3) Atorvastatin Calcium (Atorvastatin Calcium 10 Mg Tablet) 10 mg PO DAILY SWAPNA Celecoxib (Celecoxib 200 Mg Capsule) 200 mg PO BID SWAPNA Docusate Sodium (Docusate Sodium 100 Mg Capsule) 100 mg PO BID SWAPNA Donepezil HCl (Donepezil Hcl 10 Mg Tablet) 10 mg PO DAILY SWAPNA Hydromorphone HCl (Hydromorphone Hcl 0.5 Mg/0.5 Ml Syringe) 0.25 mg IVPUSH Q4H PRN; Protocol PRN Reason: Pain, Severe (Pain Scale 7-10) Lactated Ringer's (Lr) 1,000 mls @ 100 mls/hr IVCONT .Q10H [facility] Stop: 04/01/23 14:36 Last Admin: 03/31/23 15:44 Dose: 100 mls/hr Metoprolol Succinate (Metoprolol Succinate Er 25 Mg Tab.Er.24h) 25 mg PO DAILY [facility]; Protocol Ondansetron HCl (Ondansetron Hcl 4 Mg/2 Ml Vial) 4 mg IVPUSH Q8H PRN PRN Reason: Nausea and Vomiting Oxycodone HCl (Oxycodone Hcl Immed Release 5 Mg Tablet) 5 mg PO Q4H PRN PRN Reason: Pain, Moderate(Pain Scale 4-6) Oxycodone HCl (Oxycodone Hcl Er 10 Mg Tab.Er.12h) 10 mg PO BID [facility] Sodium Chloride (0.9 % Sodium Chloride Flush 3 Ml Syringe) 3 ml IVFLUSH QSHIFT [facility] Last Admin: 03/31/23 15:53 Dose: Not Given Home Medications Medication Instructions Recorded Confirmed Last Taken Type tramadol 50 mg tablet 50 mg PO TID PRN Pain 11/05/20 03/23/23 Unknown History oxycodone 10 mg tablet 10 mg PO QID PRN Pain 09/18/22 03/23/23 Unknown History metoprolol succinate 25 mg 25 mg PO DAILY 01/19/23 03/23/23 03/30/23 History tablet,extended release 24 hr atorvastatin 10 mg tablet 10 mg PO DAILY 03/23/23 03/23/23 03/30/23 History donepezil 10 mg tablet 10 mg PO DAILY 03/23/23 03/23/23 03/30/23 History Physical Exam Vital Signs and Narrative: Vital Signs: Last Vital Signs Temp 97.1 F 03/31/23 14:53 Pulse 63 03/31/23 14:53 Resp 20 03/31/23 14:53 BP 130/78 03/31/23 14:53 Pulse Ox 93 03/31/23 14:53 O2 Del Method Room Air 03/31/23 14:53 BMI result Body Mass Index 27.7 General: AO X 3, no acute distress Resp: CTA bilateral, no accessory muscles used CVS: S1,S2,RRR GI: soft, non tender, non distended Neuro: motor grossly intact, alert Psych: appropriate affect, appropriate insight Results Labs 03/23/23 12:59 03/23/23 12:59 Assessment and Plan (1) Osteoarthritis of right shoulder: Status: Acute Plan 62F PMH htn, hld, alzheimers dementia(mild), presneted for elective right total shoulder arthoplasty for osteoarthritis. medical consult for comanagement of comorbidities hld statin alzheimers aricept htn toprol will sign off for now, please recall if needed Time Spent With Patient Time: Total time managing care of this patient today ____ minutes.
[2023-03-31] MEDS: ceFAZolin Sodium/Dextrose,Iso 2 GM/50 ML PIGGYBACK IV (17:56)
[2023-03-31] MEDS: HYDROmorphone HCl 0.5 MG/0.5 ML SYRINGE 0.25 MG IVPUSH (18:08)
[2023-03-31] MEDS: oxyCODONE HCl Immed Release 5 MG TABLET PO (19:54)
[2023-03-31] MEDS: oxyCODONE HCl ER 10 MG TAB.ER.12H PO (19:54)
[2023-03-31] MEDS: Docusate Sodium 100 MG CAPSULE PO (19:55)
[2023-03-31] MEDS: Celecoxib 200 MG CAPSULE PO (19:55)
[2023-04-01] MEDS: Lactated Ringers 1,000 ML 100 ML IVCONT ×2 (01:35→13:47)
[2023-04-01 03:23] VITALS: BP 100/58; PULSE 67; RESP 18; TEMP 36.4; O2SAT 98
[2023-04-01 05:51] LABS: MANUAL DIFF FLAG NO
[2023-04-01] MEDS: oxyCODONE HCl Immed Release 5 MG TABLET PO ×5 (06:12→22:55)
[2023-04-01 06:18] LABS: Anion Gap 13 (12-20); Blood Urea Nitrogen 21 mg/dL (9-16); Calcium 9.2 mg/dL (8.4-10.2); Carbon Dioxide 26 mmol/L (22-29); Chloride 109 mmol/L (96-108); Creatinine Clr Calc Pharmacy 62.9; Estimated Glomerular Filt Rate > 60; Glucose Fasting 171 mg/dL (60-99); Potassium 4.6 mmol/L (3.3-5.1); Sodium 143 mmol/L (135-145)
[2023-04-01 06:33] LABS: Basophils Percent Auto 0.1 % (0-2); Hematocrit 34.1 % (37.0-47.0); Hemoglobin 11.3 g/dl (12.0-16.0); Imm Gran Abs Auto 0.06 X10*3/uL (0.00-0.03); Imm Gran Pct Auto 0.4 % (0.0-0.4); Lymphocytes Absolute Auto 1.8 X10*3/uL (1.2-4.9); Lymphocytes Percent Auto 12.9 % (20-40); Mean Corpuscular HGB Conc 33.1 g/dl (31.0-35.0); Mean Corpuscular Hemoglobin 32.5 pg (27.0-33.0); Mean Platelet Volume 11.3 fL (9.4-12.3); Monocytes Absolute Auto 1.3 X10*3/uL (0.1-1.2); Monocytes Percent Auto 9.6 % (2-11); Neutrophils Absolute Auto 10.7 x10*3/uL (2.0-8.3); Platelet Count 218 X10*3/uL (160-400); Red Blood Count 3.48 X10*6/uL (4.20-5.50); Red Cell Distribution Width 13.1 % (11.0-16.0); White Blood Count 13.8 X10*3/uL (4.8-10.8)
[2023-04-01 07:11] VITALS: BP 121/61; PULSE 61; RESP 16; TEMP 36.2; O2SAT 100
--- NOTE | 2023-04-01 07:15 | HO.POSTANES ---
Post Anesthesia Evaluation Post Anesthesia Evaluation Date of Service: 04/01/23 Vital Signs: Vital Signs Temp Pulse Resp BP Pulse Ox O2 Del Method 04/01/23 03:23 97.5 F 67 18 100/58 L 98 Room Air 03/31/23 23:32 98 F 68 18 99/56 L 96 Room Air 03/31/23 19:39 97.9 F 77 16 122/65 94 Room Air Anesthesia: Nerve Block and General Mental Status: Awake Pain Control: Satisfactory Nausea/Vomiting: None Hydration: Adequate Anesthesia-Related Issues: No Anes. Related Issues
[2023-04-01] MEDS: Docusate Sodium 100 MG CAPSULE PO ×2 (07:18→20:31)
[2023-04-01] MEDS: Donepezil HCl 10 MG TABLET PO (07:18)
[2023-04-01] MEDS: Metoprolol Succinate ER 25 MG TAB.ER.24H PO (07:18)
[2023-04-01] MEDS: Atorvastatin Calcium 10 MG TABLET PO (07:18)
[2023-04-01] MEDS: oxyCODONE HCl ER 10 MG TAB.ER.12H PO ×2 (07:18→20:31)
[2023-04-01] MEDS: Celecoxib 200 MG CAPSULE PO ×2 (07:18→20:31)
--- NOTE | 2023-04-01 07:18 | PM.PNORT ---
Subjective Subjective Date of Service: 04/01/23 Interval history: POD1 s/p RTSA. Patient resting comfortably. No overnight events. Pain managed. No additional complaints. Physical Exam Vital Signs: Vital Signs: Last Vital Signs Temp 97.1 F 04/01/23 07:11 Pulse 61 04/01/23 07:11 Resp 16 04/01/23 07:11 BP 121/61 04/01/23 07:11 Pulse Ox 100 04/01/23 07:11 O2 Del Method Room Air 04/01/23 07:11 BMI result Body Mass Index 27.7 Const: General: cooperative, healthy appearing and no acute distress Resp: Effort & Inspection: normal respiratory effort and able to speak in complete sentences Cardio: Rate: regular rate Peripheral pulses: Peripheral pulses 2+ throughout GI: Palpation (GI): Soft to palpation Skin: Lesions: no lesions Rashes: no rashes Extrem: Other: Right shoulder Aquacel is c/d/i. NVI. Procedures Date of Service Date of Service: 04/01/23 Progress Note: A&P Assessment and plan (1) Status post total replacement of right shoulder: Status: Acute Plan Continue pain mgmnt begin PT for right TSA - Protect the subscap repair Dispo planning-Pending PT eval, pain mgmnt Time Spent With Patient Time: Total time managing care of this patient today ____ minutes. Quality Stroke Does the patient have a stroke diagnosis?: No VTE Prior VTE?: No VTE Risk Level:: Medical - moderate - high VTE Device Contraindication: N/A - Device Ordered VTE Drug Contraindication: N/A - Med Ordered
[2023-04-01] MEDS: HYDROmorphone HCl 0.5 MG/0.5 ML SYRINGE 0.25 MG IVPUSH ×4 (08:01→20:31)
[2023-04-01] MEDS: Acetaminophen 325 MG TABLET 650 MG PO ×2 (10:06→18:26)
--- NOTE | 2023-04-01 10:58 | MHC.CM.PN ---
pt lives with had no previous servceis pt has a ride home referral to [facility] for servceis
--- NOTE | 2023-04-01 11:03 | MHC.CM.PN ---
pt lives w/ has own ride home referral to [facility] for home pt
[2023-04-01 12:00] VITALS: BP 141/65; PULSE 69; RESP 16; TEMP 36.3; O2SAT 99
[2023-04-01 15:45] VITALS: BP 135/71; PULSE 60; RESP 18; TEMP 35.5; O2SAT 100
[2023-04-01 19:42] VITALS: BP 124/60; PULSE 67; RESP 18; TEMP 36.4; O2SAT 96
[2023-04-01] MEDS: 0.9 % Sodium Chloride Flush 3 ML SYRINGE IVFLUSH (20:32)
[2023-04-02] MEDS: HYDROmorphone HCl 0.5 MG/0.5 ML SYRINGE 0.25 MG IVPUSH ×2 (03:49→09:46)
[2023-04-02 03:53] VITALS: BP 131/69; PULSE 62; RESP 18; TEMP 36.6; O2SAT 96
[2023-04-02 06:24] LABS: MANUAL DIFF FLAG NO
[2023-04-02 06:39] LABS: Basophils Absolute Auto 0.1 X10*3/uL (0.0-0.2); Basophils Percent Auto 0.6 % (0-2); Eosinophils Absolute Auto 0.1 X10*3/uL (0.0-0.4); Eosinophils Percent Auto 1.8 % (0-4); Hematocrit 33.1 % (37.0-47.0); Hemoglobin 10.7 g/dl (12.0-16.0); Imm Gran Abs Auto 0.03 X10*3/uL (0.00-0.03); Imm Gran Pct Auto 0.4 % (0.0-0.4); Lymphocytes Absolute Auto 2.4 X10*3/uL (1.2-4.9); Lymphocytes Percent Auto 31.5 % (20-40); Mean Corpuscular HGB Conc 32.3 g/dl (31.0-35.0); Mean Corpuscular Hemoglobin 31.7 pg (27.0-33.0); Mean Corpuscular Volume 97.9 fL (80.0-98.0); Mean Platelet Volume 11.2 fL (9.4-12.3); Monocytes Absolute Auto 0.9 X10*3/uL (0.1-1.2); Monocytes Percent Auto 12.1 % (2-11); Neutrophils Absolute Auto 4.1 x10*3/uL (2.0-8.3); Neutrophils Percent Auto 53.6 % (45-73); Platelet Count 191 X10*3/uL (160-400); Red Blood Count 3.38 X10*6/uL (4.20-5.50); Red Cell Distribution Width 13.3 % (11.0-16.0); White Blood Count 7.7 X10*3/uL (4.8-10.8)
[2023-04-02 07:04] LABS: Anion Gap 9 (12-20); Blood Urea Nitrogen 18 mg/dL (9-16); Calcium 8.9 mg/dL (8.4-10.2); Carbon Dioxide 26 mmol/L (22-29); Chloride 110 mmol/L (96-108); Creatinine Clr Calc Pharmacy 62.9; Estimated Glomerular Filt Rate > 60; Glucose Fasting 90 mg/dL (60-99); Potassium 4.2 mmol/L (3.3-5.1); Sodium 141 mmol/L (135-145)
[2023-04-02 07:23] VITALS: BP 136/69; PULSE 66; RESP 18; TEMP 36.8; O2SAT 96
[2023-04-02] MEDS: Docusate Sodium 100 MG CAPSULE PO (07:57)
[2023-04-02] MEDS: Celecoxib 200 MG CAPSULE PO (07:57)
[2023-04-02] MEDS: Donepezil HCl 10 MG TABLET PO (07:57)
[2023-04-02] MEDS: Metoprolol Succinate ER 25 MG TAB.ER.24H PO (07:57)
[2023-04-02] MEDS: 0.9 % Sodium Chloride Flush 3 ML SYRINGE IVFLUSH (07:58)
[2023-04-02] MEDS: oxyCODONE HCl ER 10 MG TAB.ER.12H PO (07:58)
[2023-04-02] MEDS: Atorvastatin Calcium 10 MG TABLET PO (07:58)
--- NOTE | 2023-04-02 10:26 | MHC.CM.PN ---
DP: PT HAS BEEN MEDICALLY CLEARED FOR DC HOME WITH NEW [facility] FOR HOME THERAPY. FAMILY WILL TRANSPORT HOME. [facility] NOTIFIED OF TODAY'S DC.
--- NOTE | 2023-04-02 10:51 | P.F2F_ITS ---
Service Date Service Date: 04/02/23 Encounter Date of encounter: 04/02/23 Reasons for Services Signs and symptoms assessed: right arm pain, weakness. Reason for physical therapy: home safety and mobility, therapeutic exercises, restore joint function, gait/transfer training, ADL training and energy conservation Reason for occupational therapy: home safety and mobility, therapeutic exercises, restore joint function, gait/transfer training, ADL training and energy conservation Homebound: Leaving the home is medically contraindicated at this time without the asist of a device and/or another person due th the listed conditions above and below. Reason homebound: unsteady gait / fall risk, pain with ambulation, poor balance / fall risk and unable to drive Homebound supporting statement: Pt. is considered home bound due to recent surgery. Unable to drive, poor balance, poor gait mechanics. Certification: Based on the above findings, I certify that this patient is confined to the home and needs intermittent retirement care, physical therapy and/or speech therapy, or continues to need occupational therapy. The patient is under my care, and I have initiated the establishment of the plan of care. The patient will be followed by a physician who will periodically review the plan of care. Time Spent With Patient Time: Total time managing care of this patient today ____ minutes.
--- NOTE | 2023-04-04 16:45 | P.OP_ITS ---
Operative Note Operative Note Date of Service: 03/31/23 Narrative: Date of Service: 03/31/23 Pre-op diagnosis: Right shoulder OA Post-op diagnosis: same Procedure: Right TSA Implants: Tournier Size 1 Nucleus 44x18 Simpliciti head Small 40 Cortiloc glenoid, cemented Surgeon: Tan Benavidez MD Anesthesia: GETA and regional Was an Sales Expert Home Theater used for this Procedure?: Yes Sales Expert Home Theater: Milana Dee Estimated blood loss (mL): 200 IV fluids (mL): 1,000 Pathology: other Condition: stable Disposition: PACU Procedure in detail: Patient was brought to the operating room and placed in the beach chair position on the surgical table. The limb was prepped and draped in standard sterile fashion and a time out was called to identify proper site, proper procedure and IV antibiotics per weight were administered. I began by making a deltopectoral incision from the coracoid to the pectoralis insertion.? Blunt dissection identified the cephalic vein which was retracted laterally.? Blunt dissection was taken down to the 3 sisters which were cauterized.? I then made a full- thickness capsulotomy including the subscapularis. A 1 cm cuff was left for repair.? This was then tagged and the arm was externally rotated and extended and the head was dislocated.? The humeral head was eburnated and there was a very large inferior osteophyte that was removed with an osteotome.? The RTC was intact. An anatomic head cut was made in patient's natural inclination (approximately 132 degree) .? I used size 1 guide and drilled a beefpin through the center of the cut and the lateral umeral cortex. This was overdrilled with the simplicity drill and I then placed my head protector and turned my attention to the glenoid.? Posterior anterior and superior glenoid retractors were placed and the biceps was tenotomized and labral tissue was removed.? Based on the preoperative CT and templating a guide pin was placed in approximately 8 degrees of retroversion and neutral inclination.? Using a Reamer I reamed down to bleeding bone circumferentially and placed the size 40M glenoid drill guide. I drilled my center hole and peg holes and trialed with a 44x18 head. I was satisfied with the translation and so I cemented in place my final glenoid while applying axial compression. Once the cement was dry all excess cement was removed. I then returned to the humerus where I trialed a?44x18 head. I was satisfied with the height and the stability. I irrigated copiously and then impacted in the final implants. I was satisfied with the stability of the implants. I then irrigated and repaired the subscapularis with fiberwire.? I closed in a layered fashion with absorbable suture and vikas and the patient was placed in a sterile dressing and an abduction sling.? She was extubated brought to recovery room stable condition there were no known complications.
--- NOTE | 2023-04-10 16:16 | P.DS_ITS ---
DS: Providers Provider Date of Service: 04/10/23 Date of admission: 03/31/23 09:59 Primary care physician: Domingo Khan MD Consults: 03/31/23 15:24 Consult to Hospitalist Routine Comment: Consulting Provider: Hospitalist Reason For Exam: medical managment DS: Diagnosis Discharge Diagnosis (1) Status post total replacement of right shoulder: Status: Acute DS: Summary Hospital Course Hospital Course: The patient underwent a successful right total shoulder arthroplasty was transferred to PACU and then to the floor to recover. During their stay, their vitals were stable, afebrile at 98.3 . Labs were unremarkable, H/H 10.7/33.1 . POD 1 he was started on ASA for DVT ppx, they also received Physical Therapy services twice a day. Physical therapy should include : Wear sling at all times unless for hygiene and exercises * Pendelums three times a day * Physical Therapy/ Occupation therapy---protect the subscap repair * ---No raising Right arm above 30 degrees, No ER/IR beyond neutrals, no Abduction beyond 30 degrees * ---No heavy lifting * ---Elbow and wrist ROM ok Prior to discharge, his dressing was changed, incision clean dry and intact, new Aquacel dressing applied. The Aquacel dressing should remain intact and dry at all times. Any concerns with the dressing, please contact orthopedic office. No showering. The plan is to be discharged home with [facility] Time Spent with Patient Time attestation: Total time managing care of this patient today ____ minutes. Discharge coordination time: Less than 30 minutes Quality: Safe Use of Opioids Does Pt have an Active Cancer Diagnosis on the Problem List?: No Quality: Stroke Does the patient have a stroke diagnosis?: No Physical Exam Vital Signs: Vital Signs: Last Vital Signs Temp 98.3 F 04/02/23 07:23 Pulse 66 04/02/23 07:23 Resp 18 04/02/23 07:23 BP 136/69 04/02/23 07:23 Pulse Ox 96 04/02/23 07:23 O2 Del Method Room Air 04/02/23 07:23 BMI result Body Mass Index 27.7 DS: Data Data Completed and Pending Completed studies during hospitalization [Text1]: Pending at discharge 03/31/23 14:07 Surgical [PTH] Routine Procedures Introduction of Anesthetic Agent into Peripheral Nerves and Plexi, Percutaneous Approach (03/31/23) Replacement of Right Shoulder Joint with Synthetic Substitute, Open Approach (03/31/23) Discharge Plan Discharge Anticipated Discharge Date/Time: 04/02/23 10:13 Patient Disposition: Home Health Service Discharge Diagnosis: RT TSA Referrals: Vi [facility]ONE[facility] [Outside] - 1 Week (HOME SERVICES FOR OCCUPATIONAL/PHYSICAL THERAPY- A THERAPIST WILL REACH OUT TO YOU TO SET UP FIRST VISIT.) Elsa Hickey PA-C [Physician Division Sales Manager] - 2 Weeks (04/16/23 1:15 [facility] Elsa Hickey PA-C) Discharge Medications: New docusate sodium 100 mg Capsule 100 mg PO BID 14 Days Qty: 28 0RF celecoxib 200 mg Capsule 200 mg PO BID 30 Days Qty: 60 0RF acetaminophen 325 mg Tablet 650 mg PO Q6H PRN (Reason: Pain, Mild (Pain Scale 1-3)) 30 Days Qty: 240 0RF oxycodone 5 mg Tablet 5 mg PO Q4H PRN (Reason: Pain, Moderate(Pain Scale 4-6)) 7 Days Qty: 42 0RF Rx Instructions: Partial Fill upon patient request. Continued atorvastatin 10 mg tablet 10 mg PO DAILY donepezil 10 mg tablet 10 mg PO DAILY metoprolol succinate 25 mg tablet extended release 24 hr 25 mg PO DAILY Discontinued tramadol 50 mg tablet 50 mg PO TID PRN (Reason: Pain) oxycodone 10 mg tablet 10 mg PO QID PRN (Reason: Pain) Discharge Orders: Discharge Order (Routine); Ordered 04/02/23 Ordered By: Milana Dee Diet: Regular diet Activity on Discharge: Use Splints or Immobilizers Stand Alone Forms: Patient Portal Discharge page Care Plan Goals: Restore function of joint Health Concerns: none Plan of Treatment: Physical Therapy Pain management DVT prophylaxis Assessment: * Wear sling at all times unless for hygiene and exercises * Pendelums three times a day * Physical Therapy/ Occupation therapy---protect the subscap repair * ---No raising Right arm above 30 degrees, No ER/IR beyond neutrals, no Abduction beyond 30 degrees * ---No heavy lifting * ---Elbow and wrist ROM ok * Aspirin 81mg twice a day * Follow up with orthopedics in 2 weeks Discharge Date/Time: 04/02/23 11:24
== END 2023-04-02 11:24 | disposition home health service (06) | DRG 322 ==
LOC: HO.SSSA 10:02 → HO.S3 14:40
PROVIDERS: Physician Assistant; Admitting Provider Orthopaedic Surgery; PCP Internal Medicine; Visit Provider Orthopaedic Surgery
PROC: 0RRJ0JZ Replacement of Right Shoulder Joint with Synthetic Substitute, Open Approach (ICD-10-PCS; CPT 23472; principal; 2023-03-31 11:50)
DX: M19.011 Primary osteoarthritis, right shoulder (principal); G30.9 Alzheimer's disease, unspecified; F02.A0 Dementia in other diseases classified elsewhere, mild, without behavioral disturbance, psychotic disturbance, mood disturbance, and anxiety; I10 Essential (primary) hypertension; E78.5 Hyperlipidemia, unspecified; G89.18 Other acute postprocedural pain; Z87.891 Personal history of nicotine dependence; Z79.899 Other long term (current) drug therapy
CPT/HCPCS: 36415; 73020; 80048; 85025; 86850; 86900; 86901; 87640; 87641; 88304; 88307; 88311; 97110; 97166; C1713; C1776; J0690; J1100; J1170; J2250; J2370; J2405; J3010

== ENCOUNTER → 2023-04-14 09:29 | Outpatient (BNVA) | payer BC, SELFPAY | PROVIDERS: PCP Internal Medicine; Visit Provider Nurse Practitioner Psychiatric/Mental Health ==

== ENCOUNTER → 2023-04-16 13:16 | Outpatient (BNVA) | payer BC, SELFPAY | PROVIDERS: PCP Internal Medicine; Visit Provider Physician Assistant ==

== ENCOUNTER 2023-04-27 10:11 | Outpatient (AMB) | payer BC, SELFPAY ==
[2023-04-27 10:24] VITALS: BP 108/80; PULSE 79; O2SAT 98
--- NOTE | 2023-04-27 10:24 | A.OFFVIS_ITS ---
Intake Vital Signs 04/27/23 10:24 BP 108/80 Blood Pressure Location Lt brachial Position Sitting Pulse 79 Pulse Oximetry (%) 98 Intake Visit Reasons: MAT Visit Allergies No Known Allergies [No Known Allergies*] Allergy (Verified 04/16/23 13:35) HPI MAT Visit HPI Details Patient presents for follow up Reporting current suboxone dose is not really doing anything, I don't feel a difference . She denies pain is worsening or the same. Does report that shoulder discomfort is improving. Appearing less anxious than prior visit. Discussed increasing dose to 4mg TID, patient agreeable. Denies any side effects with current dose. [facility] Medical History Elevated cholesterol History of COVID-19 History of hepatitis C HTN (hypertension) Low back pain Memory changes Osteoarthritis of right shoulder Right shoulder pain Surgical History History of back surgery History of carpal tunnel release History of repair of right rotator cuff (~03/2016) Hx of colonoscopy Family History Father No problems noted. Mother No problems noted. Social History Are you a primary client care manager to a significant other at home: Yes (son with special needs) Do you presently have visiting nurse or other home services: No Alcohol intake: never Patient Tobacco Use Status: Former Tobacco user Quit Date: Tobacco use type: Cigarette service: No Current occupational status: employed Current occupation: right handed Review of Systems Const Reports as per HPI Physical Exam Vital Signs: Last Vital Signs Pulse 79 04/27/23 10:24 BP 108/80 04/27/23 10:24 Pulse Ox 98 04/27/23 10:24 Const General: cooperative, healthy appearing and no acute distress Psych Appearance: well kempt Mental Status: mental status grossly normal Speech and movement: Clear speech present Affect: Blunted affect present Attitude: cooperative Insight: Fair insight present (Psych) Judgement: Good judgement present (Psych) Assessment & Plan Assessment & Plan (1) Opioid use disorder: Code(s): F11.90 - Opioid use, unspecified, uncomplicated Plan: * increase suboxone dose to 4mg TID * follow up 3 weeks (this fiction writer will be out of office) Medications: Changed From buprenorphine-naloxone 4-1 mg (Suboxone) 1 film sublingual BID 15 ea 0RF To buprenorphine-naloxone 4-1 mg (Suboxone) 1 film sublingual TID 54 ea 0RF 18 days Coding Level of Care Code Est Pt Level 3 (89982) Diagnoses Opioid use disorder F11.90
== END 2023-04-27 10:45 | disposition home or self-care (01) ==
LOC: HO.HCC 10:11
PROVIDERS: PCP Internal Medicine; Visit Provider Nurse Practitioner Psychiatric/Mental Health
DX: F11.90 Opioid use, unspecified, uncomplicated (principal)
CPT/HCPCS: 99213

== ENCOUNTER → 2023-04-27 10:11 | Outpatient (BNVA) | payer BC, SELFPAY | PROVIDERS: PCP Internal Medicine; Visit Provider Nurse Practitioner Psychiatric/Mental Health ==

== ENCOUNTER 2023-05-14 09:33 | Outpatient (AMB) | payer BC, SELFPAY ==
--- NOTE | 2023-05-14 09:47 | A.OFFVIS_ITS ---
Intake Intake Visit Reasons: Postop-RT TSA 03/31/23 NE Intake Note: Karen is a 62 year old right hand dominant female who presents today for a post operative appointment s/p Right TSA 03/31/23. Patient reports that she is doing well Allergies No Known Allergies [No Known Allergies*] Allergy (Verified 04/16/23 13:35) HPI Postop-RT TSA 03/31/23 NE HPI Details Karen is a 62 year old woman who presents ~6 weeks S/P right TSA. 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 She has some pain with motion, and discontinued her sling a few days ago She currently taking Suboxone and has recently had her dosage increased. [facility] Medical History Elevated cholesterol History of COVID-19 History of hepatitis C HTN (hypertension) Low back pain Memory changes Osteoarthritis of right shoulder Right shoulder pain Surgical History History of back surgery History of carpal tunnel release History of repair of right rotator cuff (~03/2016) Hx of colonoscopy Family History Father No problems noted. Mother No problems noted. Social History Are you a primary care connector to a significant other at home: Yes (son with special needs) Do you presently have visiting nurse or other home services: No Alcohol intake: never Patient Tobacco Use Status: Former Tobacco user Quit Date: Tobacco use type: Cigarette service: No Current occupational status: employed Current occupation: right handed Review of Systems Const All systems reviewed & are unremarkable except as noted in HPI and below Physical Exam Const General: no acute distress and alert Orientation/consciousness: patient oriented x3 Neuro General: patient oriented x3 Extrem Other: Right Shoulder: Well-healed incision 60 degree AB 80 degree FF 40 degree ER No pain with passive ROM Stiff in abduction Psych Appearance: grossly normal Affect: normal affect Attitude: cooperative Results Reviewed Results Reviewed: I personally reviewed relevant radiographs. Right total shoulder arthroplasty in expected post operative position with no hardware complications or evidence of loosening Assessment & Plan Assessment & Plan (1) Status post total replacement of right shoulder: Code(s): Z96.611 - Presence of right artificial shoulder joint Plan: This is a 62 year old woman S/P right TSA, DOS: 03/31/23, her subscap appears to be intact. She exhibits poor awareness of motion. She is doing well and has recently discontinued her sling. I recommend she continue to work with PT for ROM and avoid any lifting or overhead activities. She will follow up in 6 weeks. (2) Opioid use disorder: Code(s): F11.90 - Opioid use, unspecified, uncomplicated Plan: Currently on Suboxone, 4mg TID. Plan Scribed for Tan Benavidez MD by Dereje Contreras, director of medical staff services, on 05/14/23 at 9:55 AM, EST. Coding Level of Care Code Global (29475) Diagnoses Status post total replacement of right shoulder Z96.611 Opioid use disorder F11.90
== END 2023-05-14 11:05 | disposition home or self-care (01) ==
PROVIDERS: PCP Internal Medicine; Visit Provider Orthopaedic Surgery
DX: Z96.611 Presence of right artificial shoulder joint (principal); F11.90 Opioid use, unspecified, uncomplicated
CPT/HCPCS: 99024

== ENCOUNTER → 2023-05-14 09:33 | Outpatient (BNVA) | payer BC, SELFPAY | PROVIDERS: PCP Internal Medicine; Visit Provider Orthopaedic Surgery ==

== ENCOUNTER 2023-06-05 10:00 | Outpatient (RCR) | payer BC, SELFPAY ==
--- NOTE | 2023-05-07 09:43 | MHC.PT.EP ---
[facility] [place] Office [place] Office [place] Office [address] Chan Rucker [address] [phone] F: [phone] F: [phone] F: [phone] F: [phone] Physical Therapy Plan of Care Date of Evaluation: Date of Surgery: 03/31/2023 Diagnosis: s/p RIGHT TSA due to GHJ OA (DOS: 03/31/23) Assessment: Patient is a pleasant 62 y.o. female who is referred to PT by Elsa Hickey PA-C, with Dx of s/p RIGHT total shoulder arthroplasty performed on 03/31/2023. Patient impairments include pain, limited ROM R shoulder, UE weakness. Patient current functional limitations are don/doff clothing, buttons, lifting, washing hair, cooking/cleaning. Patient will benefit from skilled PT to address aforementioned impairments and functional limitations to meet established goals. Frequency and Duration: The patient will be seen 2x/week for 8 weeks Short Term Goals: 4 weeks Patient is able to perform AROM R shoulder flexion 90 degrees without UT compensation. Patient is able to perform AROM R shoulder ER to 45 degrees without pain to improve mobility. [facility] Goals: 8 weeks Patient presents with increased R shoulder flexion AROM 150 degrees to reach overhead to cabinet. Patient presents with increased R shoulder flexion strength 4-/5 to be able to perform light cooking/cleaning. Treatment Plan: Modalities to reduce pain, spasms and effusion. Manual therapy to restore motion and function. Therapeutic exercise to improve strength and flexibility. Neuromuscular re-education for posture and balance. Therapeutic activities to return to functional activities of daily living. Electronically signed by: Khang Davison, PT, DPT Please sign and return to therapist. Thank you for your referral.
--- NOTE | 2023-07-28 11:15 | MHC.PT.DC ---
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 She had poor compliance with visits and was not compliant using sling or maintaining shoulder precautions post surgically. I made th orthopedic office aware during these sessions. She ceased attending PT on her own accord, against recommendations to continue. Electronically signed by: Khang Davison, PT, DPT Please sign and return to therapist. Thank you for your referral.
== END 2023-07-28 11:17 | disposition home or self-care (01) ==
LOC: HO.PT 10:00
PROVIDERS: PCP Internal Medicine; Visit Provider Physician Assistant
DX: Z96.611 Presence of right artificial shoulder joint (principal)
CPT/HCPCS: 97110; 97140; 97161

== ENCOUNTER 2023-08-18 09:14 | Outpatient (AMB) | payer BC, SELFPAY ==
--- NOTE | 2023-08-18 09:16 | A.OFFVIS_ITS ---
Intake Vital Signs 08/18/23 09:22 BP 140/90 H Blood Pressure Location Lt radial Position Sitting Pulse 52 Pulse Source Pulse Oximeter Pulse Oximetry (%) 98 Oxygen Delivery Method Room Air Intake Visit Reasons: MAT Visit Intake Note: the patient presents for a mat visit Senior Administrator Support Required: No Allergies No Known Allergies [No Known Allergies*] Allergy (Verified 08/18/23 09:23) Do you need a note to return to daycare/school/sports/work: No HPI MAT Visit HPI Details Patient presents to restart buprenorphine Currently taking tramadol 1-2x/day Having cravings for percocet and reports not wanting to use them--previously found suboxone helpful with cravings Appt today with for memory loss. Memory impairment visible during visit--unable to remember the date, unable to recall the year. 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 Discussed including her in care as she previously has missed appts, or forgotten to refill medications--patient agreeable. Denies any substance use. Denies any overdose since last visit. Denies any changes with medications, however unsure of all that she is taking. [facility] Medical History Elevated cholesterol History of COVID-19 History of hepatitis C HTN (hypertension) Low back pain Memory changes Osteoarthritis of right shoulder Right shoulder pain Surgical History History of back surgery History of carpal tunnel release History of repair of right rotator cuff (~03/2016) Hx of colonoscopy Family History Father No problems noted. Mother No problems noted. Social History Are you a primary healthcare marketer to a significant other at home: Yes (son with special needs) Do you presently have visiting nurse or other home services: No Alcohol intake: never Patient Tobacco Use Status: Former Tobacco user Quit Date: Tobacco use type: Cigarette service: No Current occupational status: employed Current occupation: right handed Review of Systems Const Reports as per HPI Physical Exam Vital Signs: Last Vital Signs Pulse 52 08/18/23 09:22 BP 140/90 H 08/18/23 09:22 Pulse Ox 98 08/18/23 09:22 Oxygen Delivery Method Room Air 08/18/23 09:22 Const General: cooperative and healthy appearing Nutritional Appearance: average body habitus Orientation/consciousness: oriented to person and oriented to place Neuro General: oriented to person and oriented to place Assessment & Plan Assessment & Plan (1) Opioid use disorder: Code(s): F11.90 - Opioid use, unspecified, uncomplicated Plan: * Suboxone 2mg QD (1/2 film BID) * TIFFANIE signed by patient--allowing CCC to speak with and inform of plan of care. called and notified of rx and next appt. * follow up 2 weeks Medications: New buprenorphine-naloxone 2-0.5 mg (Suboxone) 1 film buccal DAILY 14 ea 0RF Discontinued buprenorphine-naloxone 4-1 mg (Suboxone) Discontinued Reason: Doctor's Order 1 film sublingual DAILY 4 ea 0RF Coding Level of Care Code Est Pt Level 4 (37804) Diagnoses Opioid use disorder F11.90
[2023-08-18 09:22] VITALS: BP 140/90; PULSE 52; O2SAT 98
== END 2023-08-18 09:43 | disposition home or self-care (01) ==
PROVIDERS: PCP Internal Medicine; Visit Provider Nurse Practitioner Psychiatric/Mental Health
DX: F11.90 Opioid use, unspecified, uncomplicated (principal)
CPT/HCPCS: 99214

== ENCOUNTER → 2023-08-18 09:14 | Outpatient (BNVA) | payer BC, SELFPAY | PROVIDERS: PCP Internal Medicine; Visit Provider Nurse Practitioner Psychiatric/Mental Health ==

== ENCOUNTER 2023-08-31 14:58 | Outpatient (AMB) | payer BC, SELFPAY ==
--- NOTE | 2023-08-31 14:59 | MHC.OFFVIS ---
Intake Intake Visit Reasons: MAT Visit Intake Note: the patient presents for a mat visit Pharmacy Benefits Coordinator Required: No Allergies No Known Allergies [No Known Allergies*] Allergy (Verified 08/31/23 15:01) HPI MAT Visit HPI Details Patient presents for follow up Feels as if though suboxone is not holding her through the day, increased cravings in the evening when at home PFSH Medical History Elevated cholesterol History of COVID-19 History of hepatitis C HTN (hypertension) Low back pain Memory changes Osteoarthritis of right shoulder Right shoulder pain Surgical History History of back surgery History of carpal tunnel release History of repair of right rotator cuff (~03/2016) Hx of colonoscopy Family History Father No problems noted. Mother No problems noted. Social History Are you a primary intensive care ambulance paramedic to a significant other at home: Yes (son with special needs) Do you presently have visiting nurse or other home services: No Alcohol intake: never Patient Tobacco Use Status: Former Tobacco user Quit Date: Tobacco use type: Cigarette service: No Current occupational status: employed Current occupation: right handed Review of Systems Const Reports as per HPI Physical Exam Const General: cooperative and healthy appearing Nutritional Appearance: average body habitus Orientation/consciousness: oriented to person and oriented to place Neuro General: oriented to person and oriented to place Assessment & Plan Assessment & Plan (1) Opioid use disorder: Code(s): F11.90 - Opioid use, unspecified, uncomplicated Plan: increase suboxone to 2mg BID follow up 2 weeks risk reduction discussion Medications: Changed From buprenorphine-naloxone 2-0.5 mg (Suboxone) 1 film buccal DAILY 14 ea 0RF To buprenorphine-naloxone 2-0.5 mg (Suboxone) 1 film buccal BID 28 ea 0RF Coding Level of Care Code Est Pt Level 3 (71243) Diagnoses Opioid use disorder F11.90
== END 2023-08-31 15:17 | disposition home or self-care (01) ==
PROVIDERS: PCP Internal Medicine; Visit Provider Nurse Practitioner Psychiatric/Mental Health
DX: F11.90 Opioid use, unspecified, uncomplicated (principal)
CPT/HCPCS: 99213

== ENCOUNTER → 2023-08-31 14:58 | Outpatient (BNVA) | payer BC, SELFPAY | PROVIDERS: PCP Internal Medicine; Visit Provider Nurse Practitioner Psychiatric/Mental Health ==

== ENCOUNTER 2023-09-15 11:29 | Day surgery (SDC) | payer BC, SELFPAY ==
[2023-09-09 14:01] VITALS: BMI 26.4
--- NOTE | 2023-09-14 08:42 | HO.ANESPROP2 ---
Documented by User: Belem Espinal NP 09/14/23 08:43 HPI - Anesthesia Eval Consult details Narrative: 63yo F for Colonoscopy Suboxone daily PMFSH Active Problems Active Problems: All Active Problems (Updated 09/09/23 @ 14:00 by Nichelle Warren RN) Opioid use disorder (Acute) Status post total replacement of right shoulder (Acute) History of repair of right rotator cuff (Acute ~03/2016) Past Medical History Medical History History of hepatitis C Memory changes Right shoulder pain Low back pain Elevated cholesterol HTN (hypertension) Osteoarthritis of right shoulder History of COVID-19 Family History Family History Father No problems noted. Mother No problems noted. Family history of problems with anesthesia: No Surgical History Surgical History History of total replacement of right shoulder joint Hx of colonoscopy History of repair of right rotator cuff (~03/2016) History of carpal tunnel release History of back surgery History of Problems with Anesthesia: No Social History Social History Are you a primary manager primary care to a significant other at home: Yes (son with special needs) Do you presently have visiting nurse or other home services: No Alcohol intake: never Patient Tobacco Use Status: Former Tobacco user Quit Date: 20 yrs ago Tobacco use type: Cigarette service: No Current occupational status: employed Current occupation: right handed Meds Allergies Allergy/AdvReac Type Severity Reaction Status Date / Time No Known Allergies Allergy Verified 09/15/23 11:45 [No Known Allergies*] Home Medications Medication Instructions Recorded Confirmed Last Taken Type metoprolol succinate 25 mg 25 mg PO DAILY 01/19/23 09/09/23 03/30/23 History tablet,extended release 24 hr atorvastatin 10 mg tablet 10 mg PO DAILY 03/23/23 09/09/23 03/30/23 History donepezil 10 mg tablet 10 mg PO DAILY 03/23/23 09/09/23 03/30/23 History Exam Height,Weight and Vital Signs: Height 5 ft 1 in Weight 63.503 kg Pertinent Lab Results Pertinent Lab Results: Laboratory Tests 04/02/23 05:32 WBC 7.7 Hgb 10.7 L Hct 33.1 L Plt Count 191 Sodium 141 Potassium 4.2 Chloride 110 H Carbon Dioxide 26 BUN 18 H Creatinine 0.82 Assessment and Plan Assessment Anesthesia Assessment: Chart Reviewed Final Anesthetic Review Family History of Problems with Anesthesia: No History of Problems with Anesthesia: No Documented by User: Steff Orozco MD 09/15/23 12:51 PMFSH Active Problems Active Problems: All Active Problems (Updated 09/02/23 @ 12:13 by Steff Orozco MD) HTN Hypercholesterolemia Opioid use disorder (Acute) Status post total replacement of right shoulder (Acute) History of repair of right rotator cuff (Acute ~03/2016) Did not take suboxone today Very little output after prep. ? clarity Past Medical History Medical History History of hepatitis C Memory changes Right shoulder pain Low back pain Elevated cholesterol HTN (hypertension) Osteoarthritis of right shoulder History of COVID-19 Family History Family History Father No problems noted. Mother No problems noted. Surgical History Surgical History History of total replacement of right shoulder joint Hx of colonoscopy History of repair of right rotator cuff (~03/2016) History of carpal tunnel release History of back surgery Social History Social History Are you a primary manager primary care to a significant other at home: Yes (son with special needs) Do you presently have visiting nurse or other home services: No Alcohol intake: never Patient Tobacco Use Status: Former Tobacco user Quit Date: 20 yrs ago Tobacco use type: Cigarette service: No Current occupational status: employed Current occupation: right handed Meds Allergies Allergy/AdvReac Type Severity Reaction Status Date / Time No Known Allergies Allergy Verified 09/15/23 11:45 [No Known Allergies*] Home Medications Medication Instructions Recorded Confirmed Last Taken Type metoprolol succinate 25 mg 25 mg PO DAILY 01/19/23 09/09/23 03/30/23 History tablet,extended release 24 hr atorvastatin 10 mg tablet 10 mg PO DAILY 03/23/23 09/09/23 03/30/23 History donepezil 10 mg tablet 10 mg PO DAILY 03/23/23 09/09/23 03/30/23 History Exam Height,Weight and Vital Signs: Height 5 ft 1 in Weight 63.503 kg Vital Signs Temp Pulse Resp BP Pulse Ox O2 Del Method 98.8 F 75 16 138/79 96 Room Air 09/15/23 11:56 09/15/23 11:56 09/15/23 11:56 09/15/23 11:56 09/15/23 11:56 09/15/23 11:56 Airway Mallampati Class: II TM Dist: >3cm Neck ROM: Full Loose/Missing/Broken Teeth: No (Denies broken, loose, missing teeth) Heart: RRR Lungs: CTAB Assessment and Plan Assessment Anesthesia Assessment: Anesthesia Plan Discussed Final Anesthetic Review NPO: Yes (Sip of black coffee about 2 hours ago) ASA Class: III Final Preanesthetic Review: No Changes in Pt Med Stat, Meds/Allgs Chart Reviewed, Consent Obtained/Reviewed and Anes Risks/Benef Reviewed Patient Risk: Low Procedure Risk: Low Assessment/Block/Sedation in SS: Assess/Block/Sedation-SS Anesthetic Plan Anesthetic Plan: MAC: Disposition: Standard PACU
[2023-09-15 11:43] VITALS: BMI 26.3
[2023-09-15 11:48] VITALS: BMI 26.3
[2023-09-15 11:56] VITALS: BP 138/79; PULSE 75; RESP 16; TEMP 37.1; O2SAT 96
[2023-09-15] MEDS: Lactated Ringers 1,000 ML 100 ML IVCONT (12:02)
--- NOTE | 2023-09-15 12:11 | MHC.SHP ---
Pre-Procedural Eval Section A Date of Service: 09/15/23 The patient is an INPATIENT: No Changes since office visit: No Cold of Flu in the past 2 weeks, No New Medical Problems, No Changes in Medication and No Patient answered all questions The History & Physical has been completed within 30 days and I have reviewed it.: Yes Section B Chief Complaint: Encounter for screening for malignant neoplasm of Allergies: Allergies Allergy/AdvReac Type Severity Reaction Status Date / Time No Known Allergies Allergy Verified 09/15/23 11:45 [No Known Allergies*] Plan I have reviewed the history and physical and performed a pertinent physical examination on my patient. No changes have occurred unless specified. Time Spent With Patient Time: Total time managing care of this patient today ____ minutes.
--- NOTE | 2023-09-15 12:36 | PM.OP ---
Brief Operative Note Date of Service: 09/15/23 Pre-op diagnosis: screening Procedure: flex sig to 30 cm Surgeon: Gabino Moran MD Anesthesia: MAC Was an Hardware Installation Coordinator used for this Procedure?: No Estimated blood loss (mL): 0 Pathology: none sent Condition: stable Disposition: PACU
[2023-09-15 12:42] VITALS: BP 134/80; PULSE 69; RESP 18; TEMP 36.1; O2SAT 96
[2023-09-15 12:57] VITALS: BP 126/73; PULSE 70; RESP 20; TEMP 37.1; O2SAT 97
--- NOTE | 2023-09-15 13:11 | OP_ITS ---
DATE OF SERVICE: 09/15/2023 SURGEON: Gabino Moran MD INDICATIONS: Colon cancer screening. PREOPERATIVE DIAGNOSIS: POSTOPERATIVE DIAGNOSIS: PROCEDURE PERFORMED: Flexible sigmoidoscopy to 30 cm. ESTIMATED BLOOD LOSS: COMPLICATIONS: ANESTHESIA: Monitored anesthesia care. ASSISTANTS: SPECIMENS: DESCRIPTION OF PROCEDURE: History and physical was performed. The risks and benefits of the procedure were explained to the patient. Informed consent was obtained. The patient was placed in the left lateral decubitus position. A digital rectal exam was performed, which revealed formed stool in the rectum. The Olympus pediatric video colonoscope was introduced into the rectum and advanced to 30 cm where further advancement was not possible due to formed stool. Examination was performed. The scope was removed. She tolerated the procedure well and was returned to the recovery area in stable condition. FINDINGS: The visualized colonic mucosa was normal. The exam was extremely limited due to formed stool. There was mild sigmoid diverticulosis. No polyps were identified. Retroflexed examination was limited. IMPRESSION: Incomplete colonoscopy, flexible sigmoidoscopy limited to 30 cm. RECOMMENDATION: Repeat colonoscopy with a 2-day bowel prep. MD SAMMIE Gamez/KOKI / [id number]
== END 2023-09-15 13:24 | disposition home or self-care (01) ==
PROVIDERS: PCP Internal Medicine; Visit Provider Internal Medicine Gastroenterology
PROC: 0DJD8ZZ Inspection of Lower Intestinal Tract, Via Natural or Artificial Opening Endoscopic (ICD-10-PCS; CPT 45378; principal; 2023-09-15 12:50)
DX: Z12.11 Encounter for screening for malignant neoplasm of colon (principal); K57.30 Diverticulosis of large intestine without perforation or abscess without bleeding; B18.2 Chronic viral hepatitis C; I10 Essential (primary) hypertension; D64.9 Anemia, unspecified; G89.29 Other chronic pain; M54.50 Low back pain, unspecified; E78.00 Pure hypercholesterolemia, unspecified; R41.3 Other amnesia; Z96.611 Presence of right artificial shoulder joint; Z79.899 Other long term (current) drug therapy; F11.90 Opioid use, unspecified, uncomplicated; Z98.890 Other specified postprocedural states; Z87.891 Personal history of nicotine dependence; Z86.16 Personal history of COVID-19
CPT/HCPCS: 45330; J2704

== ENCOUNTER 2023-09-19 08:34 | Outpatient (REF) | payer BC, SELFPAY ==
--- NOTE | ~2023-09-19 | MR_ITS ---
EXAMINATION: MR BRAIN WITHOUT CONTRAST CLINICAL INFORMATION: Short-term memory problems. COMPARISON: MRI dated 01/27/2022. TECHNIQUE: Multiplanar, multisequence imaging of the brain was performed without contrast. FINDINGS: No diffusion abnormalities are identified to suggest an acute infarct. The ventricles are normal in size. No mass effect or midline shift is seen. Nonspecific mild scattered white matter signal changes are stable and may be due to chronic microangiopathy. No extra-axial fluid collections are seen. The brainstem and cerebellum are normal. The gradient refocused acquisition is normal. The craniovertebral junction, marrow signal, and midline structures are normal. The major intracranial flow voids at the level of the [place] are preserved. The dural venous sinus flow voids are maintained. The mastoid air cells and paranasal sinuses are well aerated. MR/MR head/brain wo con IMPRESSION: No acute process. Stable mild scattered nonspecific white matter signal changes which may be due to chronic microangiopathy.
== END 2023-09-19 08:35 | disposition home or self-care (01) ==
LOC: HO.MRI 08:34
PROVIDERS: PCP Internal Medicine; Visit Provider Psychiatry & Neurology Neurology
DX: G93.40 Encephalopathy, unspecified (principal); R93.0 Abnormal findings on diagnostic imaging of skull and head, not elsewhere classified
CPT/HCPCS: 70551

== ENCOUNTER 2023-10-01 12:53 | Outpatient (AMB) | payer BC, SELFPAY ==
--- NOTE | 2023-10-01 12:54 | A.OFFVIS_ITS ---
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- says she made a mistake during a restraint right after having had restraint training Thinks she has another job in the works Reports intermittent cravings, says they come on when she is bored or if she has a lot to do as she feels it gives her a little pick me up [facility] Medical History History of hepatitis C Memory changes Right shoulder pain Low back pain Elevated cholesterol HTN (hypertension) Osteoarthritis of right shoulder History of COVID-19 Surgical History History of total replacement of right shoulder joint Hx of colonoscopy History of repair of right rotator cuff (~03/2016) History of carpal tunnel release History of back surgery Family History Father No problems noted. Mother No problems noted. Social History Are you a primary career services representative to a significant other at home: Yes (son with special needs) Do you presently have visiting nurse or other home services: No Alcohol intake: never Patient Tobacco Use Status: Former Tobacco user Quit Date: 20 yrs ago Tobacco use type: Cigarette service: No Current occupational status: employed Current occupation: right handed Review of Systems Const Reports as per HPI Physical Exam Vital Signs: Last Vital Signs Pulse 65 10/01/23 13:02 BP 124/76 10/01/23 13:02 Pulse Ox 96 10/01/23 13:02 Oxygen Delivery Method Room Air 10/01/23 13:02 Const General: cooperative, comfortable and no acute distress Resp Effort & Inspection: normal respiratory effort Psych Appearance: grossly normal Speech and movement: Normal speech and movement present Affect: normal affect Attitude: cooperative Assessment & Plan Assessment & Plan (1) Opioid use disorder: Code(s): F11.90 - Opioid use, unspecified, uncomplicated Plan -Continue suboxone same dose -risk reduction discussion -Follow up 2 weeks Medications: Refilled buprenorphine-naloxone 2-0.5 mg (Suboxone) 1 film buccal BID 28 ea 0RF Coding Level of Care Code Est Pt Level 3 (28667) Diagnoses Opioid use disorder F11.90
[2023-10-01 13:02] VITALS: BP 124/76; PULSE 65; O2SAT 96
== END 2023-10-01 14:09 | disposition home or self-care (01) ==
PROVIDERS: PCP Internal Medicine; Visit Provider Nurse Practitioner Family
DX: F11.90 Opioid use, unspecified, uncomplicated (principal)
CPT/HCPCS: 99213

== ENCOUNTER → 2023-10-01 12:53 | Outpatient (BNVA) | payer BC, SELFPAY | PROVIDERS: PCP Internal Medicine; Visit Provider Nurse Practitioner Family ==

== ENCOUNTER 2023-12-17 11:29 | Outpatient (REF) | payer MEDICAID, SELFPAY ==
--- NOTE | ~2023-12-17 | XR_ITS ---
EXAMINATION: XR ABDOMEN COMPLETE CLINICAL INDICATION: Abdominal pain. COMPARISON: None available. TECHNIQUE: 2 views of the abdomen. FINDINGS: Nonobstructive bowel gas pattern. Moderate amount of stool in the colon. Small pelvic calcifications are likely vascular. Clips overlie the central abdomen and left sacrum. Spinal stabilization hardware overlies the lower lumbar spine. Levoscoliosis of the lumbar spine with degenerative changes. Degenerative changes in the bilateral sacroiliac joints. XR/XR abdomen min 2V IMPRESSION: Nonobstructive bowel gas pattern. Moderate amount of stool in the colon.
== END 2023-12-17 11:30 | disposition home or self-care (01) ==
LOC: HO.XRAY 11:29
PROVIDERS: PCP Internal Medicine; Visit Provider Internal Medicine
DX: R10.9 Unspecified abdominal pain (principal)
CPT/HCPCS: 74019

== ENCOUNTER 2023-12-22 09:31 | Outpatient (REF) | payer MEDICAID, SELFPAY ==
--- NOTE | ~2023-12-22 | XR_ITS ---
EXAMINATION: XR CHEST CLINICAL INFORMATION: G31.84 COMPARISON: Chest radiograph 09/10/2022. CT shoulder 03/17/2023. TECHNIQUE: 2 views of the chest were obtained. FINDINGS: The aorta is ectatic. A 3-D model was created from the 03/17/2023 CT shoulder, and the ascending aorta measured 3.7 cm, which is within normal limits. A partial right shoulder prosthesis is present. Posterior fusion hardware is partially visualized in the lumbosacral spine. No other abnormality is noted involving the heart, lungs, mediastinum, bony thorax or soft tissues. XR/XR chest 2V IMPRESSION: No acute intrathoracic disease. Ectatic aorta.
== END 2023-12-22 09:32 | disposition home or self-care (01) ==
LOC: HO.XRAY 09:31
PROVIDERS: PCP Internal Medicine; Visit Provider Psychiatry & Neurology Neurology
DX: G31.84 Mild cognitive impairment of uncertain or unknown etiology (principal)
CPT/HCPCS: 71046

== ENCOUNTER 2024-02-23 06:13 | Day surgery (SDC) | payer OTHER, SELFPAY ==
[2023-10-23 13:53] VITALS: BMI 26.4
--- NOTE | 2023-10-26 10:47 | HO.ANESPROP2 ---
HPI - Anesthesia Eval Consult details Narrative: 63yo F for Colonoscopy s/p flex sig 08/2023 with TIVA Suboxone daily PMFSH Active Problems Active Problems: All Active Problems (Updated 10/22/23 @ 20:43 by Doris Lamb, IZA) Opioid use disorder (Acute) Status post total replacement of right shoulder (Acute) History of repair of right rotator cuff (Acute ~03/2016) Past Medical History Medical History (Updated 10/23/23 @ 13:53 by Nichelle Warren RN) Hx of flexible sigmoidoscopy Former smoker Chronic back pain Anemia History of hepatitis C Memory changes Right shoulder pain Low back pain Elevated cholesterol HTN (hypertension) Osteoarthritis of right shoulder History of COVID-19 Family History Family History Father No problems noted. Mother No problems noted. 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 to a significant other at home: Yes (son with special needs) Do you presently have visiting nurse or other home services: No Alcohol intake: never Patient Tobacco Use Status: Former Tobacco user Quit Date: 20 yrs ago Tobacco use type: Cigarette service: No Current occupational status: employed Current occupation: right handed Meds Allergies Allergy/AdvReac Type Severity Reaction Status Date / Time No Known Allergies Allergy Verified 10/01/23 12:54 [No Known Allergies*] Home Medications Medication Instructions Recorded Confirmed Last Taken Type metoprolol succinate 25 mg 25 mg PO DAILY 01/19/23 10/22/23 03/30/23 History tablet,extended release 24 hr atorvastatin 10 mg tablet 10 mg PO DAILY 03/23/23 10/22/23 03/30/23 History donepezil 10 mg tablet 10 mg PO DAILY 03/23/23 10/22/23 03/30/23 History calcium carbonate 600 mg-vitamin 1 tab PO DAILY 10/22/23 10/22/23 Unknown History D3 5 mcg (200 unit) tablet flaxseed oil 1,000 mg capsule 1,000 mg PO DAILY 10/22/23 10/22/23 Unknown History multivitamin 1 tab PO DAILY 10/22/23 10/22/23 Unknown History tramadol 50 mg tablet 50 mg PO Q8H PRN Pain (Scale Score 10/22/23 10/22/23 Unknown History 7-10) Exam Height,Weight and Vital Signs: Height 5 ft 1 in Weight 63.503 kg Pertinent Lab Results Pertinent Lab Results: Laboratory Tests 04/02/23 05:32 WBC 7.7 Hgb 10.7 L Hct 33.1 L Plt Count 191 Sodium 141 Potassium 4.2 Chloride 110 H Carbon Dioxide 26 BUN 18 H Creatinine 0.82 Assessment and Plan Assessment Anesthesia Assessment: Chart Reviewed Final Anesthetic Review Family History of Problems with Anesthesia: No History of Problems with Anesthesia: No
--- NOTE | 2024-02-22 09:38 | HO.ANESPROP2 ---
Documented by User: Belem Espinal NP 02/22/24 09:39 HPI - Anesthesia Eval Consult details Narrative: 63yo F for Colonoscopy Suboxone daily s/p flex sig 08/2023 with TIVA PMFSH Active Problems Active Problems: All Active Problems Opioid use disorder (Acute) Status post total replacement of right shoulder (Acute) History of repair of right rotator cuff (Acute ~03/2016) Past Medical History Medical History Hx of flexible sigmoidoscopy Former smoker Chronic back pain Anemia History of hepatitis C Memory changes Right shoulder pain Low back pain Elevated cholesterol HTN (hypertension) Osteoarthritis of right shoulder History of COVID-19 Family History Family History Father No problems noted. Mother No problems noted. 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 home: Yes (son with special needs) Do you presently have visiting nurse or other home services: No Alcohol intake: never Patient Tobacco Use Status: Former Tobacco user Quit Date: 20 yrs ago Tobacco use type: Cigarette service: No Current occupational status: employed Current occupation: right handed Meds Allergies Allergy/AdvReac Type Severity Reaction Status Date / Time No Known Allergies Allergy Verified 02/23/24 06:30 [No Known Allergies*] Home Medications ?Medication ?Instructions ?Recorded ?Confirmed ?Last Taken ?Type metoprolol succinate 25 mg 25 mg PO DAILY 01/19/23 10/22/23 02/23/24 History tablet,extended release 24 hr atorvastatin 10 mg tablet 10 mg PO DAILY 03/23/23 10/22/23 03/30/23 History donepezil 10 mg tablet 10 mg PO DAILY 03/23/23 10/22/23 03/30/23 History calcium carbonate 600 mg-vitamin 1 tab PO DAILY 10/22/23 10/22/23 Unknown History D3 5 mcg (200 unit) tablet flaxseed oil 1,000 mg capsule 1,000 mg PO DAILY 10/22/23 10/22/23 Unknown History multivitamin 1 tab PO DAILY 10/22/23 10/22/23 Unknown History tramadol 50 mg tablet 50 mg PO Q8H PRN Pain (Scale Score 10/22/23 10/22/23 Unknown History 7-10) Exam Height,Weight and Vital Signs: Height 5 ft 1 in Weight 63.503 kg Assessment and Plan Assessment Anesthesia Assessment: Chart Reviewed Final Anesthetic Review Family History of Problems with Anesthesia: No History of Problems with Anesthesia: No Documented by User: Steff Orozco MD 02/23/24 08:15 HPI - Anesthesia Eval Consult details Narrative: 63yo F for Colonoscopy ?Suboxone daily-Patient states many years ago and not taking now. She was last seen in 10/10 at [facility] for MAT visit (per review of chart) and refill of suboxone s/p flex sig 08/2023 with TIVA PMFSH Past Medical History Medical History Hx of flexible sigmoidoscopy Former smoker Chronic back pain Anemia History of hepatitis C Memory changes Right shoulder pain Low back pain Elevated cholesterol HTN (hypertension) Osteoarthritis of right shoulder History of COVID-19 Family History Family History Father No problems noted. Mother No problems noted. 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 home: Yes (son with special needs) Do you presently have visiting nurse or other home services: No Alcohol intake: never Patient Tobacco Use Status: Former Tobacco user Quit Date: 20 yrs ago Tobacco use type: Cigarette service: No Current occupational status: employed Current occupation: right handed Meds Allergies Allergy/AdvReac Type Severity Reaction Status Date / Time No Known Allergies Allergy Verified 02/23/24 06:30 [No Known Allergies*] Home Medications ?Medication ?Instructions ?Recorded ?Confirmed ?Last Taken ?Type metoprolol succinate 25 mg 25 mg PO DAILY 01/19/23 10/22/23 02/23/24 History tablet,extended release 24 hr atorvastatin 10 mg tablet 10 mg PO DAILY 03/23/23 10/22/23 03/30/23 History donepezil 10 mg tablet 10 mg PO DAILY 03/23/23 10/22/23 03/30/23 History calcium carbonate 600 mg-vitamin 1 tab PO DAILY 10/22/23 10/22/23 Unknown History D3 5 mcg (200 unit) tablet flaxseed oil 1,000 mg capsule 1,000 mg PO DAILY 10/22/23 10/22/23 Unknown History multivitamin 1 tab PO DAILY 10/22/23 10/22/23 Unknown History tramadol 50 mg tablet 50 mg PO Q8H PRN Pain (Scale Score 10/22/23 10/22/23 Unknown History 7-10) Exam Height,Weight and Vital Signs: Height 5 ft 1 in Weight 63.503 kg Vital Signs Temp Pulse Resp BP Pulse Ox O2 Del Method 02/23/24 06:44 98.2 F 61 18 113/74 96 Room Air Airway Mallampati Class: III TM Dist: >3cm Neck ROM: Full Loose/Missing/Broken Teeth: No (Denies broken, loose, missing teeth) Heart: RRR Lungs: CTAB Assessment and Plan Assessment Anesthesia Assessment: Anesthesia Plan Discussed and Chart Reviewed Final Anesthetic Review Family History of Problems with Anesthesia: No History of Problems with Anesthesia: No NPO: Yes ASA Class: III Final Preanesthetic Review: No Changes in Pt Med Stat, Meds/Allgs Chart Reviewed, Consent Obtained/Reviewed and Anes Risks/Benef Reviewed Patient Risk: Low Procedure Risk: Low Assessment/Block/Sedation in SS: Assess/Block/Sedation-SS Anesthetic Plan Anesthetic Plan: MAC: and TIVA Disposition: Standard PACU
[2024-02-23 06:29] VITALS: BMI 26.3
[2024-02-23] MEDS: Lactated Ringers 1,000 ML 100 ML IVCONT (06:39)
[2024-02-23 06:44] VITALS: BP 113/74; PULSE 61; RESP 18; TEMP 36.8; O2SAT 96
--- NOTE | 2024-02-23 07:27 | MHC.SHP ---
Pre-Procedural Eval Section A - 24 Hr Update-Section A only Date of Service: 02/23/24 Section B - Complete if H&P > 30 days Chief Complaint: Encounter for screening for malignant neoplasm of Details of Present Illness: see H&P no changes Relevant Family History (Specify if Yes): No Relevant Social History: None Present Medications: see Short Stay Collaborative assessment Medical History: No relevant PMH History of Previous Operations: No relevant previous surgery Allergies: Allergies Allergy/AdvReac Type Severity Reaction Status Date / Time No Known Allergies Allergy Verified 02/23/24 06:30 [No Known Allergies*] Review of Systems Sugical H&P ROS: Negative: Constitution, Cardiovascular, Respiratory, Neurological, Psychiatric, Hem-Onc, Allergic/Immunologic, Gastrointestinal, Genitourinary, Musculoskeletal, Integumentary, Endocrine and Eyes/Ears/Nose/Throat Exam Surgical H&P Exam: Normal: HEENT, Normal: Heart, Normal: Lungs, Normal: Extremities, Normal: Abdomen, Normal: Skin and Normal: Neurological Plan Diagnosis/Plan: Unchanged I have reviewed the history and physical and performed a pertinent physical examination on my patient. No changes have occurred unless specified. Time Spent With Patient Time: Total time managing care of this patient today ____ minutes.
[2024-02-23 08:11] VITALS: BP 101/54; PULSE 61; RESP 11; TEMP 36.3; O2SAT 100
[2024-02-23 08:29] VITALS: BP 117/79; PULSE 58; RESP 17; TEMP 36.3; O2SAT 96
--- NOTE | 2024-02-23 09:18 | OP_ITS ---
DATE OF SERVICE: 02/23/2024 SURGEON: Gabino Moran MD INDICATIONS: Colon cancer screening and incomplete prep at the last time of her examination. PREOPERATIVE DIAGNOSIS: POSTOPERATIVE DIAGNOSIS: PROCEDURE PERFORMED: Colonoscopy to the cecum with biopsy. ESTIMATED BLOOD LOSS: COMPLICATIONS: ANESTHESIA: Monitored anesthesia care. ASSISTANTS: SPECIMENS: DESCRIPTION OF PROCEDURE: A history and physical was performed. The risks and benefits of the procedure were explained to the patient and informed consent was obtained. The patient was placed in the left lateral decubitus position. A digital rectal exam was performed and was found to be normal. The Olympus pediatric video colonoscope was introduced into the rectum and advanced to the cecum. The cecum was identified by transillumination, palpation, and identification of ileocecal valve. Examination was performed and the scope was removed. She tolerated the procedure well and was taken to recovery area in stable condition. FINDINGS: The terminal ileum was not examined. The visualized colonic mucosa was normal. The quality of prep was good. At 15 cm from the anal verge was a less than 5 mm sessile polyp which was removed with the biopsy forceps. There was mild sigmoid diverticulosis. Retroflexed examination showed some small internal hemorrhoids. IMPRESSION: Colon polyp. RECOMMENDATION: Follow up the biopsy results. MD SAMMIE Gamez/ALEXL / [id number] MTDD
== END 2024-02-23 08:55 | disposition home or self-care (01) ==
PROVIDERS: PCP Internal Medicine; Visit Provider Internal Medicine Gastroenterology
PROC: 0DJD8ZZ Inspection of Lower Intestinal Tract, Via Natural or Artificial Opening Endoscopic (ICD-10-PCS; CPT 45378; principal; 2024-02-23 07:30)
DX: Z12.11 Encounter for screening for malignant neoplasm of colon (principal); K63.5 Polyp of colon; K57.30 Diverticulosis of large intestine without perforation or abscess without bleeding; K64.8 Other hemorrhoids; B18.2 Chronic viral hepatitis C
CPT/HCPCS: 45380; 88305; J2704

== ENCOUNTER 2024-09-02 10:29 | Outpatient (AMB) | payer OTHER, SELFPAY ==
--- NOTE | 2024-09-02 10:42 | MHC.AM.SUB ---
Intake Visit Reasons: Intake Allergies No Known Allergies [No Known Allergies*] Allergy (Verified 02/23/24 06:30) HPI HPI Intake: Details: Patient presents to re-[facility] care Last seen about a year ago in office Patient reports recent overdose this past weekend -requiring narcan family present and called EMS She states she has been taking 2-3 pills per week IN or oral Last use day of overdose --no withdrawal sx noted or reported She reports getting energy from pills Unclear why she discontinued buprenoprhine Suboxone 2mg BID previously Since last visit she reports she was terminated from her job (due to forgetting things ) Little structure in her day, social stressors exacerbated Discussed memory issues--she states that she is no longer taking the Donepezil, unsure when she stopped taking it. Reporting she wasn't aware it was for her memory, but she did not like the way it made her feel. She does not know when or if she has an upcoming appt with neurology or her PCP Review of Systems Const Reports as per HPI and Reports lethargy Psych Reports anxiety and Reports difficulty concentrating Assessment & Plan Assessment & Plan (1) Opioid use disorder: Code(s): F11.90 - Opioid use, unspecified, uncomplicated Category: Medical Plan: restart suboxone at 2mg daily overdose prevention discussion--patient reports she has narcan at home and declined additional narcan concern regarding memory impairment and limited social supports and structure--will revisit at subsequent visits Medications: New buprenorphine-naloxone 2-0.5 mg (Suboxone) 1 film buccal DAILY 10 ea 0RF PFSH Medical History Hx of flexible sigmoidoscopy Former smoker Chronic back pain Anemia History of hepatitis C Memory changes Right shoulder pain Low back pain Elevated cholesterol HTN (hypertension) Osteoarthritis of right shoulder History of COVID-19 Surgical History History of abdominoplasty History of section History of liver biopsy History of total replacement of right shoulder joint Hx of colonoscopy History of repair of right rotator cuff (~03/2016) History of carpal tunnel release History of back surgery Family History Father No problems noted. Mother No problems noted. 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
== END 2024-09-02 11:03 | disposition home or self-care (01) ==
PROVIDERS: PCP Internal Medicine; Visit Provider Nurse Practitioner Psychiatric/Mental Health
DX: F11.90 Opioid use, unspecified, uncomplicated (principal)
CPT/HCPCS: 99214

== ENCOUNTER → 2024-09-02 10:29 | Outpatient (BNVA) | payer OTHER, SELFPAY | PROVIDERS: PCP Internal Medicine; Visit Provider Nurse Practitioner Psychiatric/Mental Health | DX: F11.90 Opioid use, unspecified, uncomplicated (principal); Z51.81 Encounter for therapeutic drug level monitoring | CPT/HCPCS: 99212 ==

== ENCOUNTER 2024-09-07 13:13 | Outpatient (REF) | payer OTHER, SELFPAY ==
--- NOTE | ~2024-09-07 | MM_ITS ---
EXAMINATION: MM SCREENING DIGITAL BREAST TOMOSYNTHESIS, BILATERAL CLINICAL INFORMATION: Screening. Asymptomatic. COMPARISON: Mammography: Comparison is made with available priors TECHNIQUE: Digital breast mammography with tomosynthesis is performed in both the craniocaudal and mediolateral oblique views along with computer-aided detection (CAD). FINDINGS: There are scattered areas of fibroglandular density (ACR BI-RADS breast composition Category b). There are no significant masses, abnormal calcifications, or other abnormalities. MM/MM tomosynthesis screening BI IMPRESSION: No mammographic evidence of malignancy. ASSESSMENT: BI-RADS BI-RADS 1 - Negative RECOMMENDATION: Routine annual mammography screening. 1 year F/U This examination should not preclude the clinical evaluation of a suspicious palpable abnormality. This patient's information was entered into a reminder system with a target due date for their next mammogram. Electronically signed by: Priyanka Lomas DO 09/19/2024 09:05 AM [facility]
--- NOTE | ~2024-09-07 | MM_ITS ---
EXAMINATION: BONE DENSITOMETRY CLINICAL INDICATION: Disorder of bone density and structure. COMPARISON: Previous BD dated 06/11/2022 and baseline BD dated 04/22/2019. TECHNIQUE: Using a [employer] DXA System (software version: 13.1) manufactured by [employer], dual-energy x-ray absorptiometry was performed of the lumbar spine and left hip. The images are of good technical quality. Summary results are attached. FINDINGS: LEFT FEMUR, NECK: Current: BMD 0.659 g/cm2, Z-score -1.3, T-score -2.7, osteoporosis. Prior: BMD 0.724 g/cm2. Baseline: BMD 0.770 g/cm2. LEFT FEMUR, TOTAL: Current: BMD 0.743 g/cm2, Z-score -0.9, T-score -2.1, osteopenia, 5.7% decrease from previous, 11.8% decrease from baseline (<5% change is not significant). Prior: BMD 0.788 g/cm2. Baseline: BMD 0.842 g/cm2. AP SPINE L1-L3 (excluding L4): The data of L1-L4 has been changed to exclude the L4 vertebral body, because hardware at this level may cause overestimation of lumbar spine density. Current: BMD 1.067 g/cm2, Z-score 0.7, T-score -0.9, normal, 5.9% decrease from previous, 2.6% decrease from baseline (<5% change is not significant). Prior: BMD 1.134 g/cm2. Baseline: BMD 1.096 g/cm2. IDENTIFIED RISK FACTORS: Menopause. HISTORY OF FRACTURE: None listed. MEDICATIONS: Calcium, multivitamin. MM/XR DEXA axial skeleton IMPRESSION: 1. DIAGNOSIS: Osteoporosis based on the lowest T-score value of -2.7 in the femoral neck applying World Health Organization criteria. 2. 10-YEAR FRACTURE RISK PREDICTION, FRAX: According to the guidelines, FRAX calculation should only be performed on patients in the osteopenia bone density category. Therefore, FRAX was not performed on this patient. 3. Treatment Recommendations: NOF guidelines recommend consideration for treatment in postmenopausal women and men age 50 and older presenting with the following: -A hip or vertebral (clinical or morphometric) fracture. -T-score less than or equal to -2.5 at the femoral neck or spine after appropriate evaluation to exclude secondary causes. -Low bone mass at the hip or spine and a 10-year fracture probability by FRAX of greater than or equal to 3% for hip fracture or greater than or equal to 20% for major osteoporotic fracture based on the [place] adapted WHO algorithm. 4. Other Recommendations: All treatment decisions require clinical judgment and consideration of individual patient factors, including patient preferences, comorbidities, previous drug use, risk factors not captured in the FRAX model (e.g. frailty, falls, vitamin D deficiency, increased bone turnover, interval significant decline in bone density) and possible under or overestimation of fracture risk by FRAX. Additional medical evaluation for secondary cause of low bone mineral density may be appropriate. FUTURE SCAN RECOMMENDATION: People with diagnosed cases of osteoporosis or at high risk for fracture should have regular bone mineral density tests. For patients eligible for Medicare, routine testing is allowed once every 2 years. The testing frequency can be increased to one year for patients who have rapidly progressing disease, those who are receiving or discontinuing medical therapy to restore bone mass, or have additional risk factors. Electronically signed by: Awais Giron MD 09/08/2024 09:27 AM [facility]
== END 2024-09-07 13:14 | disposition home or self-care (01) ==
LOC: HO.MAMMO 13:13
PROVIDERS: PCP Internal Medicine; Visit Provider Internal Medicine
DX: Z12.31 Encounter for screening mammogram for malignant neoplasm of breast (principal); Z13.820 Encounter for screening for osteoporosis; Z78.0 Asymptomatic menopausal state
CPT/HCPCS: 77063; 77067; 77080

== ENCOUNTER → 2024-09-07 13:15 | Outpatient (BNV) | payer OTHER, SELFPAY | PROVIDERS: PCP Internal Medicine; Visit Provider Internal Medicine | DX: Z12.31 Encounter for screening mammogram for malignant neoplasm of breast (principal) | CPT/HCPCS: 77063; 77067 ==

== ENCOUNTER 2024-12-22 14:15 | Outpatient (REF) | payer OTHER, SELFPAY ==
--- NOTE | ~2024-12-22 | XR_ITS ---
CLINICAL HISTORY: RIGHT HIP PAIN 2 view pelvis and right hip Comparison: None Findings: No acute fracture or dislocation. Partial visualization of lumbar fusion hardware. Mild narrowing of the acetabulofemoral joint. Multiple vikas project over the pelvis. IMPRESSION: 1. No acute fracture or dislocation. 2. Mild arthritic changes. This document has been electronically signed by: Monisha Robles DO on 12/24/2024 12:18:04
--- NOTE | ~2024-12-22 | XR_ITS ---
CLINICAL HISTORY: RIGHT UPPER LEG PAIN 2 view right femur Comparison: None Findings: No fractures or dislocations. No knee effusion. No radiopaque foreign body. IMPRESSION: No acute fracture. This document has been electronically signed by: Monisha Robles DO on 12/24/2024 12:19:38
--- OUTSIDE RECORDS SUMMARY | 2024-12-22 17:30 | XMS_ITS | Patient Health Record ---
Author Organization [facility] Address [address] [place] [address] Care Team Providers Care Screen Repairer Crusher Name Role Phone Bill SANTILLAN, Domingo Primary Care Provider Unavailab Gabino Avilez Jr Unavailable Allergies No Known Allergies Results Component Value Reference Range Notes Pathology Reviewed date:02/25/2024 01:25:51 PM Interpretation: Performing Lab:[facility], [address] [place] [phone] Notes/Report: Name: Marrufo,Karen Burris A ge/Sex: 63/F : 1960 Unit#: [id number] Attend Dr: Gabino Moran MD Re02/23/24 Status : [facility] Location: [facility] Disch: SPEC : [id number] RECD : 02/23/24 STATUS: ELDER MCFADDEN NUM: [id number] ISIDRO: 02/23/24 [facility] DR: Gabino Moran MD ENTERED: 02/23/24 34 SP TYPE: Surgical OTHR DR: Domingo Khan MD ORDERED: HE Stain/3, Gross Micro L4 Diagnosis Colon, 15 cm, polype ctomy: Hyperplastic mucosal polyp. Clinical History Pre-Op Dx: Encounter for screening for malignant neoplasm of colon Post-Op Dx: Colon polyp Microscopic Description Microscopic sections reviewed. Material Received Polyp at 15 Gross Description Received in formalin labeled ?polyp at 15? is a 0.3 cm sands-pink rectangular tissue fragment, submitted in toto in a cassette labeled A. CEDS Copies To: Gabino Moran MD [address] [place] [address] [address] [place], [place] [id number] Domingo Khan MD [address] [place] [id number] Signed (si gnature on file) Ivan Marshall MD 02/25/24 0959 END OF REPORT Reason For Referral No Information Medications Medication SIG (Take, Route, Frequency, Duration) Notes Start Date End Date Status Multi Vitamin/Minerals Unknown Calcium Unknown traMADol HCl Unknown Vitamin D Unknown Flaxseed Oil Unknown MiraLax (colon prep) 17 GM/SCOOP mixed with Gatorade or Crystal Light Orally begin at 5:00 p.m. the day before the procedure for 1 day 08/26/2023 Unknown Colyte with Flavor Packs 240 GM 3785 ml Orally Over the specified time. for 2 days 02/18/2024 Active Metoprolol Succinate ER 25 MG 1 tablet Orally Once a day Unknown Immunizations Vaccine Route Administration Date Status Comme nts Influenza Unknown 08/19/2023 Administered Problems Problem Type SNOMED Code ICD Code Onset Dates Problem Status W/U Status Risk Notes Problem 141347497 Colon cancer screening (Z12.11) Active confirmed Problem 937487126 Chronic hepatitis C without hepatic coma (B18.2) Active confirmed Encounters Encounter Location Date Provider Diagnosis [facility] [address] [place], [place] [phone] 02/23/2024 Gabino Moran Jr Encounter for screening colonoscopy Z12.11 and Colon polyps K63.5 [facility] [address] [place] [phone] 02/17/2024 Gabino Moran Jr Colon cancer screening Z12.11 [facility] [address] [place] [address] 02/22/2024 Gabino Moran Jr [facility] [address] [place] [address] 02/25/2024 Gabino Moran Jr Assessments Encounter Date Diagnosis (ICD Code) Assessment Notes Treatment Notes Treatment Clinical Notes Section Notes 02/23/2024 Encounter for screening colonoscopy (ICD-10 - Z12.11) 02/23/2024 Colon polyps (ICD-10 - K63.5) 02/17/2024 Colon cancer screening (ICD-10 - Z12.11) Plan Of Treatment Pending Test Test Name Order Date LIVER PROFILE 08/26/2023 HEPATITIS C VIRAL LOAD 08/26/2023 Liver Fibrosis Pnl 08/26/2023 Future Test Test Name Order Date COLONOSCOPY 05/07/2012 COLONOSCOPY 08/26/2023 Insurance Providers Payer Name Payer Address Payer Phone Subscriber Number Group Number Insured Name Patient Relationship to Insured Coverage Start Date Coverage End Date [facility] [address] [place] [phone] [id number] KAREN MARRUFO Self - patient is the insured Medical (General) History Medical History History ICD Code chronic hepatitis C, liver b iopsy mild chronic persistent viral hepatitis, treatment with interferon/ribavirin with SVR anemia Chronic back pain Hyperlipidemia Colonoscopy 07/30, normal, ten-year foll owup Surgical History Surgery Date(Month/Year) right shoulder surgery 05/10 abdominoplasty back surgery x3 section (x2)
--- OUTSIDE RECORDS SUMMARY | 2024-12-22 17:30 | XMS_ITS | Clinical Summary ---
Author Organization [facility] Address [address] [place] [address] Care Team Providers Care Machine Set Up Operator Name Role Phone Domingo Khan MD Primary Care Provider [phone] Social History Tobacco Use Types Packs/Day Years Used Date Smoking Tobacco: Never Assessed Comments Unknown Sex and Gender Information Value Date Recorded Sex Assigned at Not on file Legal Sex Female 8:17 PM EST Gender Identity Not on file Sexual Orientation Not on file Plan of Treatment Health Maintenance Due Date Last Done Comments Breast Cancer Screening 1960 DTaP,Tdap,and Td Vaccines (1 - Tdap) 1980 Cervical Cancer Screening: P ap Smear 1982 Pneumococcal Vaccine: 50+ Ye ars (1 of 1 - PCV) 2011 Zoster Vaccines (1 of 2) 2011 Colorectal Cancer Screening: Colonoscopy 11/12/2023 Depression Screening 11/12/2023 HIV Screening 11/12/2023 Hepatitis C Screening 11/12/2023 Social Influencers of Health Screening 11/12/2023 COVID-19 Vaccine ( - 2023-2 5 season) 2024 Influenza Vaccine (#1) 2024 RSV Immunization Patients 60 + Years Old (1 - 1-dose 75+ series) 2036 HIB Vaccines Aged Out No longer eligi ble based on patient's age to complete this topic HPV Vaccines Aged Out No longer eligi ble based on patient's age to complete this topic Hepatitis A Vaccines Aged Out No long er eligible based on patient's age to complete this topic Hepatitis B Vaccines Aged Out No long er eligible based on patient's age to complete this topic IPV Vaccines Aged Out No longer eligi ble based on patient's age to complete this topic MMR Vaccines Aged Out No longer eligi ble based on patient's age to complete this topic Meningococcal ACWY Vaccine Aged Out N o longer eligible based on patient's age to complete this topic Meningococcal B Vacine Aged Out No lo nger eligible based on patient's age to complete this topic Pneumococcal Vaccine: Pediat rics (0 to 5 Years) and At-Risk Patients (6 to 64 Years) Aged Out No longer eligible b ased on patient's age to complete this topic RSV Immunization Patients Un ernesto 20 months Aged Out No longer eligible b ased on patient's age to complete this topic Varicella Vaccines Aged Out No longer eligible based on patient's age to complete this topic Care Teams Machine Set Up Operator Relationship Specialty Start Date End Date Domingo Khan MD [address] [facility] [place] PCP - General 06/23/23
--- OUTSIDE RECORDS SUMMARY | 2024-12-22 17:30 | XMS_ITS ---
Author Organization [facility] Address [address] [place] [address] Care Team Providers Care Family Medicine Physician Name Role Phone Domingo Khan MD Primary Care Provider Unavailab Gabino Avilez Jr Unavailable REASON FOR VISIT pathology Encounters Encounter Location Date Provider Diagnosis [facility] [address] [place] [phone] 02/25/2024 Gabino Moran Jr Plan Of Treatment No Information Progress Notes * NATHAN TALBOT EDOB:1960 (63 yo F)Acc No.[id number]:02/25/2024 Patient:?NATHAN TALBOT :1960???Age:63 Y???Sex:Female Address:[address] [place], [place] [address] [address] * true * Date:? Generated for Richiei vaelntina/Devin/eTransmitting on:?12/22/2024 05:30 PM EST
--- OUTSIDE RECORDS SUMMARY | 2024-12-22 17:30 | XMS_ITS ---
Author Organization [facility] Address [address] [place] [address] Care Team Providers Care Back Roller Name Role Phone Bill SANTILLAN, Domingo Primary Care Provider Unavailab Gabino Avilez Jr Unavailable [phone] REASON FOR VISIT screening colon Encounters Encounter Location Date Provider Diagnosis [facility] [address] [place] [phone] 02/23/2024 Gabino Moran Jr Encounter for screening colonoscopy Z12.11 and Colon polyps K63.5 Assessments Encounter Date Diagnosis (ICD Code) Assessment Notes Treatment Notes Treatment Clinical Notes Section Notes 02/23/2024 Encounter for screening colonoscopy (ICD-10 - Z12.11) 02/23/2024 Colon polyps (ICD-10 - K63.5) Plan Of Treatment No Information Progress Notes * ANTIONE NATHAN EDOB:1960 (64 yo F)Acc No.[id number]:02/23/2024 COLON WITH MAC Patient:?NATHAN TALBOT Fatuma Provider:?Gabino Moran MD :1960???Age:63 Y???Sex:Female D ate:02/23/2024 Address:[address] [place], [place] [address] [facility] Pcp:Domingo Khan MD Subjective: * Chief Complaints: * ???1. Screening colon. * Medical History:? Objective: * Vitals:? Assessment: * Assessment: 1.?Encounter for screening c olonoscopy - Z12.11 (Primary)???2.?Colon polyps - K63.5??? Plan: * Treatment: * Procedure Codes:?49853 DIAGN OSTIC COLONOSCOPY * * The named appointment provid er may or may not be the originator of this progress note, and it is not deemed complete until electronically signed by the appointment provider. Sign off status: Pending * Provider:?Gabino Moran MD Date:?0 02/23/2024 Generated for Madison montgomery/Devin/Owenitting on:?12/22/2024 05:30 PM EST
--- OUTSIDE RECORDS SUMMARY | 2024-12-22 17:31 | XMS_ITS ---
Author Organization [facility] Address [address] [place] [address] Care Team Providers Care Apprentice Jockey Name Role Phone Domingo Khan MD Primary Care Provider Unavailab Gabino Avilez Jr Unavailable REASON FOR VISIT colyte prep Encounters Encounter Location Date Provider Diagnosis [facility] [address] [place] [phone] 02/22/2024 Gabino Moran Jr Plan Of Treatment No Information Progress Notes * NATHAN TALBOT EDOB:1960 (63 yo F)Acc No.[id number]:02/22/2024 Patient:?NATHAN TALBOT :1960???Age:63 Y???Sex:Female [facility] [place] [address] * true * Date:? Generated for Richiei valentina/Devin/eTransmitting on:?12/22/2024 05:30 PM EST
== END 2024-12-22 14:16 | disposition home or self-care (01) ==
LOC: HO.HMGCX 14:15
PROVIDERS: PCP Internal Medicine; Visit Provider Internal Medicine
DX: M25.551 Pain in right hip (principal); M79.604 Pain in right leg
CPT/HCPCS: 73502; 73552

== ENCOUNTER → 2024-12-22 14:33 | Outpatient (BNV) | payer OTHER, SELFPAY | PROVIDERS: PCP Internal Medicine; Visit Provider Radiology Diagnostic Radiology | DX: M25.551 Pain in right hip (principal); M79.651 Pain in right thigh | CPT/HCPCS: 73502; 73552 ==

== ENCOUNTER 2025-10-13 09:18 | Outpatient (REF) | payer OTHER, SELFPAY ==
--- NOTE | ~2025-10-13 | MM_ITS ---
EXAMINATION: MM SCREENING DIGITAL BREAST TOMOSYNTHESIS, BILATERAL CLINICAL INFORMATION: Screening. Asymptomatic. COMPARISON: Comparison made to multiple prior, most recent September 07, 2024, and most remote February 04, 2016. TECHNIQUE: Digital breast tomosynthesis is performed in mediolateral oblique and craniocaudal views along with computer-aided detection (CAD). Synthesized 2D images are generated from the tomosynthesis. FINDINGS: BREAST COMPOSITION: There are scattered areas of fibroglandular density. BILATERAL BREASTS: No significant masses, suspicious calcifications or other abnormalities are seen in either breast. MM/MM tomosynthesis screening BI IMPRESSION: BILATERAL BREASTS: Negative, no mammographic evidence of malignancy. Normal interval follow-up is recommended in 12 months. ASSESSMENT: BI-RADS: Category 1: Negative RECOMMENDATION: Routine annual mammography screening. FOLLOW-UP: 1 year F/U This examination should not preclude the clinical evaluation of a suspicious palpable abnormality. This patient's information was entered into a reminder system with a target due date for their next mammogram. Electronically signed by: Henry Nash MD 10/14/2025 06:12 PM ELIZABETH
--- OUTSIDE RECORDS SUMMARY | 2025-10-13 09:23 | XMS_ITS | Patient Health Record ---
Author Organization [facility] Address [address] [place] [address] Care Team Providers Care Metal Template Maker Name Role Phone Bill (RETIRED) Domingo SANTILLAN Primary Care Provider Unavailable Gabino Moran Jr Unavailable [phone] Allergies No Known Allergies Reason For Referral No Information Medications Medication SIG (Take, Route, Frequency, Duration) Notes Start Date End Date Status Multi Vitamin/Minerals Unknown Calcium Unknown traMADol HCl Unknown Vitamin D Unknown Flaxseed Oil Unknown MiraLax (colon prep) 17 GM/SCOOP Powder mixed with Gatorade or Crystal Light Orally begin at 5:00 p.m. 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 Problems Problem Type SNOMED Code ICD Code Onset Dates Problem Status W/U Status Risk Notes Problem Colon cancer screening (281392976) Colon cancer screening (Z12.11) Active confirmed Problem Chronic hepatitis C (269903796) Chronic hepatitis C without hepatic coma (B18.2) Active confirmed Plan Of Treatment Pending Test Test Name Order Date LIVER PROFILE 08/26/2023 HEPATITIS C VIRAL LOAD 08/26/2023 Liver Fibrosis Pnl 08/26/2023 Future Test Test Name Order Date COLONOSCOPY 05/07/2012 COLONOSCOPY 08/26/2023 Insurance Providers Payer Name Payer Address Payer Phone Subscriber Number Group Number Insured Name Patient Relationship to Insured Coverage Start Date Coverage End Date [facility] [address] [place], [place] [phone] [id number] NATHAN TALBOT Self - patient is the insured Medical (General) History Medical History History ICD Code chronic hepatitis C, liver b iopsy mild chronic persistent viral hepatitis, treatment with interferon/ribavirin with SVR anemia Chronic back pain Hyperlipidemia Colonoscopy 07/30, normal, ten-year foll owup Surgical History Surgery Date(Month/Year) section (x2) back surgery x3 abdominoplasty right shoulder surgery 05/10
--- OUTSIDE RECORDS SUMMARY | 2025-10-13 09:23 | XMS_ITS | Clinical Summary ---
Author Organization [facility] Address [address] [place] [address] Care Team Providers Care Director Airport Operations Name Role Phone Domingo Khan MD Primary Care Provider [phone] Social History Tobacco Use Types Packs/Day Years Used Date Smoking Tobacco: Never Assessed Comments Unknown Sex and Gender Information Value Date Recorded Sex Assigned at Not on file Legal Sex Female 8:17 PM EST Gender Identity Not on file Sexual Orientation Not on file Plan of Treatment Health Maintenance Due Date Last Done Comments Breast Cancer Screening 1960 Colorectal Cancer Screening: Colonoscopy 1961 DTaP,Tdap,and Td Vaccines (1 - Tdap) 1980 Cervical Cancer Screening: P ap Smear 1982 Pneumococcal Vaccine: 50+ Ye ars (1 of 1 - PCV) 2011 Zoster Vaccines (1 of 2) 2011 HIV Screening 11/12/2023 Hepatitis C Screening 11/12/2023 Social Influencers of Health Screening 11/12/2023 Depression Screening 10/19/2024 COVID-19 Vaccine (1 - 2024-2 6 season) 2025 Influenza Vaccine (#1) 2025 RSV Immunization Adult Patie nts (1 - 1-dose 75+ series) 2036 HIB [...] age to complete this topic Meningococcal B Vaccine Aged Out No l onger eligible based on patient's age to complete this topic RSV Immunization Patients Un ernesto 20 months Aged Out No longer eligible b ased on patient's age to complete this topic Varicella Vaccines Aged Out No longer eligible based on patient's age to complete this topic Care Teams Director Airport Operations Relationship Specialty Start Date End Date Domingo Khan MD [address] [facility] [place] PCP - General 06/23/23
== END 2025-10-13 09:19 | disposition home or self-care (01) ==
LOC: HO.MAMMO 09:18
PROVIDERS: PCP Student in an Organized Health Care Education/Training Program; Visit Provider Internal Medicine
DX: Z12.31 Encounter for screening mammogram for malignant neoplasm of breast (principal)
CPT/HCPCS: 77063; 77067

== ENCOUNTER → 2025-10-13 09:30 | Outpatient (BNV) | payer OTHER, SELFPAY | PROVIDERS: PCP Student in an Organized Health Care Education/Training Program; Visit Provider Radiology Body Imaging | DX: Z12.31 Encounter for screening mammogram for malignant neoplasm of breast (principal) | CPT/HCPCS: 77063; 77067 ==